=== PATIENT | female | born 1930 | race Caucasian/White ===

== ENCOUNTER 2019-11-24 19:49 | Emergency (ER) | payer MEDICARE ==
[~2019-11-24] VITALS: Ht 160 cm; Wt 53.1 kg
[~2019-11-24 19:49] MED LIST: ACET325T9 PO; ASPI325T8 PO; CALC-30 PO; CHOL2000 PO; CRESTOR20 MG PO; CYAN500T40 PO; FOLI0.4T2 PO; FURO20TA3 PO; LEFL10TA13 PO; METH2.5T PO; METO25TA4 PO; MULT-245 PO
[2019-11-24 20:28] LABS: BASO % 0 % (0-3); EOS # 0.3 x10^3/uL (0.0-0.7); EOS % 3 % (0-3); HEMATOCRIT 30.1 % (36.0-47.0); HEMOGLOBIN 10.2 g/dL (12.0-15.5); LYMPH # 0.8 x10^3/uL (1.0-4.8); LYMPH % 7 % (24-48); MEAN CORPUSCULAR HEMOGLOBIN 33 pg (25-35); MEAN CORPUSCULAR HGB CONC 34 g/dL (31-37); MEAN CORPUSCULAR VOLUME 98 fL (79-100); MONO # 1.5 x10^3/uL (0.0-1.1); MONO % 14 % (0-9); NEUT # 8.5 x10^3/uL (1.8-7.7); NEUT % 77 % (31-73); PLATELET COUNT 234 x10^3/uL (140-400); RED BLOOD COUNT 3.08 x10^6/uL (3.50-5.40); RED CELL DISTRIBUTION WIDTH 18.9 % (11.5-14.5); WHITE BLOOD COUNT 11.1 x10^3/uL (4.0-11.0)
[2019-11-24] MEDS ORDERED: IV NORMAL SALINE 1000ML BAG 1,000 ML IV ONE (20:30)
--- NOTE | 2019-11-24 20:30 | PHYS DOC ---
Past Medical History Past Medical History: Arthritis, High Cholesterol, Hypertension, Other Additional Past Medical Histor: SCOLIOSIS, PACEMAKER Past Surgical History: Tonsillectomy, Other Additional Past Surgical Histo: CARDIAC STENT, PACEMAKER, Smoking Status: Never Smoker Alcohol Use: None Drug Use: None General Adult EDM: Chief Complaint: DIARRHEA HPI: HPI: Patient is a 89 year [id number] female is a patient of Dr. Carlin presents with a chief complaint of copious diarrhea and urinary frequency. Patient states that she was recently started on a new medication furosemide. Last dose taken was Sunday. Patient states symptoms started shortly after that. Patient states she has had numerous amounts of foul-smelling diarrhea throughout the day. Patient also states she has had very frequent urination. Patient denies any fever chest pain abdominal pain or shortness of breath. Review of Systems: Review of Systems: Constitutional: Denies fever or chills. [] Eyes: Denies change in visual acuity. [] HENT: Denies nasal congestion or sore throat. [] Respiratory: Denies cough or shortness of breath. [] Cardiovascular: Denies chest pain or edema. [] GI: Denies abdominal pain, nausea, vomiting, bloody stools positive diarrhea : Denies dysuria. [] Positive urinary frequency Musculoskeletal: Denies back pain or joint pain. [] Integument: Denies rash. [] Neurologic: Denies headache, focal weakness or sensory changes. [] Endocrine: Denies polyuria or polydipsia. [] Lymphatic: Denies swollen glands. [] Psychiatric: Denies depression or anxiety. [] Heart Score: Risk Factors: Risk Factors: DM, Current or recent (<one month) smoker, HTN, HLP, family history of CAD, obesity. Risk Scores: Score 0 - 3: 2.5% MACE over next 6 weeks - Discharge Home Score 4 - 6: 20.3% MACE over next 6 weeks - Admit for Clinical Observation Score 7 - 10: 72.7% MACE over next 6 weeks - Early Invasive Strategies Current Medications: Current Medications Medications (Trade) Dose Ordered Sig/Love Start Time Stop Time Status Last Admin Dose Admin Sodium Chloride 1,000 ml @ 1,000 mls/hr 1X ONCE 11/24/19 20:30 11/24/19 21:29 Allergies: Allergies: Allergies Coded Allergies Type Severity Reaction Last Updated Verified Sulfa (Sulfonamide Antibiotics) Allergy Mild UNKNOWN 02/04/16 Yes Physical Exam: PE: Constitutional: Well developed, well nourished, no acute distress, non-toxic appearance. [] HENT: Normocephalic, atraumatic, bilateral external ears normal, oropharynx moist, no oral exudates, nose normal. [] Eyes: PERRLA, EOMI, conjunctiva normal, no discharge. [] Neck: Normal range of motion, no tenderness, supple, no stridor. [] Cardiovascular:Heart rate regular rhythm, no murmur [] Lungs & Thorax: Bilateral breath sounds clear to auscultation [] Abdomen: Bowel sounds normal, soft, no tenderness, no masses, no pulsatile masses. [] Skin: Warm, dry, no erythema, no rash. [] Back: No tenderness, no CVA tenderness. [] Extremities: No tenderness, no cyanosis, no clubbing, ROM intact, no edema. [] Neurologic: Alert and oriented X 3, normal motor function, normal sensory function, no focal deficits noted. [] Psychologic: Affect normal, judgement normal, mood normal. [] EKG: EKG: [] Radiology/Procedures: Radiology/Procedures: [] Course & Med Decision Making: Course & Med Decision Making Pertinent Labs and Imaging studies reviewed. (See chart for details) [] Patient was evaluated for chief complaint. Work-up consisted LAB. Results reviewed and discussed with patient and son. Cr noted to be greater than 2.0-- compared to previous and appears to be close to baseline. Patient also received IV fluids. After reevaluation patient states she feels much better. Discussed hospitalization versus discharge home. Patient states she feels comfortable going home. Treatment included Cipro. I elected to use Cipro because of urinary tract infection and and treatment for any causes of infectious diarrhea. Patient advised to follow-up with primary care physician advised to return to the ER if symptoms persist get worse or any new concerning symptoms arise. Henri Disclaimer: Henri Disclaimer: This electronic medical record was generated, in whole or in part, using a voice recognition dictation system. Departure Departure Impression: Primary Impression: UTI (urinary tract infection) Additional Impression: Acute diarrhea Disposition: 01 HOME, SELF-CARE Condition: STABLE Referrals: DOUG BENTON Jr, MD (PCP) Patient Instructions: Diarrhea, Urinary Tract Infection Scripts Ciprofloxacin Hcl (CIPRO) 500 Mg Tablet 1 TAB PO BID for 7 Days, #14 TAB 0 Refills Prov: NIVIA DELCID I DO 11/24/19 Justicifation of Admission Dx: Justifications for Admission: Justification of Admission Dx: N/A NIVIA DELCID I DO Nov 24, 2019 20:30
[2019-11-24 20:34] LABS: CALCIUM 9.1 mg/dL (8.5-10.1); CREATININE 2.1 mg/dL (0.6-1.0); GFR 22.3; POTASSIUM 3.5 mmol/L (3.5-5.1)
[2019-11-24 20:40] LABS: ALBUMIN/GLOBULIN RATIO 0.7 (1.0-1.7); TOTAL BILIRUBIN 0.5 mg/dL (0.2-1.0); TOTAL PROTEIN 7.2 g/dL (6.4-8.2)
[2019-11-24 23:25] LABS: BILIRUBIN,URINE SMALL (NEG); CLARITY,URINE CLOUDY; COLOR,URINE YELLOW; NITRITE,URINE NEGATIVE (NEG); PH,URINE 5.5 (<5.0-8.0); PROTEIN,URINE 30 mg/dL (NEG-TRACE); UROBILINOGEN,URINE 0.2 mg/dL (0.2 mg/dL)
[2019-11-24 23:30] LABS: BACTERIA,URINE MANY /HPF (0-FEW); HYALINE CASTS, URINE MODERATE /HPF; SQUAMOUS EPITHELIAL CELL,UR MOD /LPF; WBC,URINE 20-40 /HPF (0-4)
[2019-11-24 23:45] VITALS: BP 118/70
[2019-11-24] MEDS ORDERED: CIPROFLOXACIN 400MG PREMIX 200 ML IV ONE (23:45)
[2019-11-24] MEDS ORDERED: CIPR500T94 PO (23:52)
[2019-11-25] MEDS ORDERED: CIPROFLOXACIN HCL 250 MG TABLET. PO ONE (00:30)
== END 2019-11-25 00:40 | disposition home or self-care (01) ==
LOC: ER 19:49
DX: N39.0 Urinary tract infection, site not specified (principal); R19.7 Diarrhea, unspecified; R35.0 Frequency of micturition; M19.90 Unspecified osteoarthritis, unspecified site; E78.00 Pure hypercholesterolemia, unspecified; I10 Essential (primary) hypertension; Z95.0 Presence of cardiac pacemaker; Z90.89 Acquired absence of other organs; Z98.890 Other specified postprocedural states; Z88.2 Allergy status to sulfonamides
CPT/HCPCS: 36415; 80053; 81001; 85025; 87086; 96360; 99285; J7030

== ENCOUNTER 2019-11-25 10:21 | Inpatient (IN) | payer MEDICARE ==
[~2019-11-25] VITALS: Ht 157.5 cm; Wt 56.3 kg
[~2019-11-25 10:21] MED LIST changes: +CIPR500T94 PO
--- NOTE | 2019-11-25 11:12 | PHYS DOC ---
Past Medical History Past Medical History: Arthritis, High Cholesterol, Hypertension, Other Additional Past Medical Histor: SCOLIOSIS Past Surgical History: Angioplasty, Pacemaker, Tonsillectomy, Other Additional Past Surgical Histo: CARDIAC STENT Smoking Status: Never Smoker Alcohol Use: None Drug Use: None General Adult EDM: Chief Complaint: DIARRHEA HPI: HPI: Patient is a 89 year old female, accompanied by her son, who presents to the emergency department with complaints of continued copious diarrhea and excessive urination. Patient states her symptoms started after she had taken a dose of furosemide 7 days prior to arrival. Patient states she was prescribed the furosemide for lower extremity swelling, and she has not taken it since 11/19/19. She was seen evaluated here last night for the same sx. She declined admission at that time and was discharged home with a prescription for ciprofloxacin for a UTI. She reports that this morning she has been unable to stop having diarrhea and she urinates at the same time. She continues to complain of foul-smelling diarrhea. She denies any nausea, vomiting, abdominal pain, chest pain, shortness of breath, fever, or back pain. She currently denies any pain at this time. Review of Systems: Review of Systems: Constitutional: Denies fever or chills. [] HENT: Denies nasal congestion or sore throat. [] Respiratory: Denies cough or shortness of breath. [] Cardiovascular: Denies chest pain or edema. [] GI: Denies abdominal pain, nausea, vomiting, or bloody stools; see HPI : Denies dysuria; see HPI. [] Musculoskeletal: Denies back pain or joint pain. [] Integument: Denies rash. [] Neurologic: Denies headache, focal weakness or sensory changes. [] Psychiatric: Denies depression or anxiety. [] Heart Score: Risk Factors: Risk Factors: DM, Current or recent (<one month) smoker, HTN, HLP, family history of CAD, obesity. Risk Scores: Score 0 - 3: 2.5% MACE over next 6 weeks - Discharge Home Score 4 - 6: 20.3% MACE over next 6 weeks - Admit for Clinical Observation Score 7 - 10: 72.7% MACE over next 6 weeks - Early Invasive Strategies Allergies: Allergies: Allergies Coded Allergies Type Severity Reaction Last Updated Verified Sulfa (Sulfonamide Antibiotics) Allergy Mild UNKNOWN 9/23/16 Yes Physical Exam: PE: Constitutional: Well developed, well nourished, no acute distress, non-toxic appearance. [] HENT: Normocephalic, atraumatic, bilateral external ears normal, oropharynx dry, nose normal. [] Eyes: PERRLA, EOMI, conjunctiva normal, no discharge. [] Neck: Normal range of motion, no stridor. [] Cardiovascular:Heart rate regular rhythm, no murmur [] Lungs & Thorax: Bilateral breath sounds clear to auscultation, Respirations even and unlabored, no retractions, no respiratory distress [] Abdomen: Bowel sounds normal, soft, no tenderness, no masses, no pulsatile masses. [] Skin: Warm, dry, no erythema, no rash, skin turgor greater than 3 seconds [] Extremities: No cyanosis, ROM intact, no edema. [] Neurologic: Alert and oriented X 3, no focal deficits noted. [] Psychologic: Affect normal, judgement normal, mood normal. [] EKG: EK- sinus tachycardia, rate 110, no STEMI, read by Dr. Lee Radiology/Procedures: Radiology/Procedures: [] Course & Med Decision Making: Course & Med Decision Making Pertinent Labs and Imaging studies reviewed. (See chart for details) [id number] with Dr. Jean who is the admitting physician, and care was assumed following discussion of patient. I advised him of pending labs ordered today, and lab results from yesterday's visit. Patient's vital signs stable. Patient remains afebrile, appears nontoxic, respirations even and unlabored. Patient will be admitted to the med/surg floor. [] Dragon Disclaimer: Dragon Disclaimer: This electronic medical record was generated, in whole or in part, using a voice recognition dictation system. Departure Departure Impression: Primary Impression: UTI (urinary tract infection) Qualified Codes: N39.0 - Urinary tract infection, site not specified; R31.9 - Hematuria, unspecified Additional Impressions: Diarrhea Qualified Codes: R19.7 - Diarrhea, unspecified Dehydration Disposition: ADMITTED INPATIENT Admitting Physician: RONALD (Miranda) Condition: STABLE Referrals: MARILEE HERNANDEZ MD (PCP) Justicifation of Admission Dx: Justifications for Admission: Justification of Admission Dx: Yes Sepsis: Infection MALIK JACOBS APRN Nov 25, 2019 11:12
[2019-11-25 11:20] LABS: BASO % 0 % (0-3); EOS # 0.1 x10^3/uL (0.0-0.7); EOS % 1 % (0-3); HEMATOCRIT 29.5 % (36.0-47.0); HEMOGLOBIN 9.8 g/dL (12.0-15.5); LYMPH # 0.8 x10^3/uL (1.0-4.8); LYMPH % 9 % (24-48); MEAN CORPUSCULAR HEMOGLOBIN 33 pg (25-35); MEAN CORPUSCULAR HGB CONC 33 g/dL (31-37); MEAN CORPUSCULAR VOLUME 99 fL (79-100); MONO # 1.1 x10^3/uL (0.0-1.1); MONO % 13 % (0-9); NEUT # 6.6 x10^3/uL (1.8-7.7); NEUT % 77 % (31-73); PLATELET COUNT 202 x10^3/uL (140-400); RED BLOOD COUNT 2.98 x10^6/uL (3.50-5.40); RED CELL DISTRIBUTION WIDTH 19.3 % (11.5-14.5); WHITE BLOOD COUNT 8.6 x10^3/uL (4.0-11.0)
[2019-11-25] MEDS: IV NORMAL SALINE 1000ML BAG 1,000 ML IV SCH ×2 (11:22→22:15)
[2019-11-25 11:31] LABS: CALCIUM 9.1 mg/dL (8.5-10.1); CREATININE 2.1 mg/dL (0.6-1.0); GFR 22.3; POTASSIUM 3.1 mmol/L (3.5-5.1)
[2019-11-25 11:42] LABS: ALBUMIN 2.9 g/dL (3.4-5.0); ALBUMIN/GLOBULIN RATIO 0.7 (1.0-1.7); MAGNESIUM 1.7 mg/dL (1.8-2.4); TOTAL BILIRUBIN 0.7 mg/dL (0.2-1.0); TOTAL PROTEIN 7.1 g/dL (6.4-8.2)
[2019-11-25 13:00] LABS: BILIRUBIN,URINE SMALL (NEG); CLARITY,URINE CLOUDY; COLOR,URINE YELLOW; NITRITE,URINE NEGATIVE (NEG); PROTEIN,URINE 100 mg/dL (NEG-TRACE); UROBILINOGEN,URINE 0.2 mg/dL (0.2 mg/dL)
[2019-11-25 13:07] LABS: BACTERIA,URINE 0 /HPF (0-FEW); HYALINE CASTS, URINE MANY /HPF; SQUAMOUS EPITHELIAL CELL,UR MOD /LPF
[2019-11-25 13:08] LABS: RBC,URINE 0 /HPF (0-2); WBC,URINE 20-40 /HPF (0-4)
[2019-11-25 13:10] LABS: AMORPHOUS SEDIMENT,UR PRESENT /HPF
[2019-11-25 14:01] LABS: FECAL OB PT NEGATIVE (NEG)
[2019-11-25 15:00] VITALS: BP 100/50
--- NOTE | 2019-11-25 16:09 | NUR ---
Patient would benefit from futher PT/OT evaluation when medically appropriate to participate in skilled therapy services. Please order when able. Thank you. Addendum: 11/25/19 at 1610 by BENJAMIN TAVARES, PT PT Amended: Links added.
[2019-11-25 19:00] VITALS: BP 98/50
[2019-11-25] MEDS ORDERED: MAGNESIUM SULFATE 2GM 50 ML IV ONE (19:30)
[2019-11-25] MEDS ORDERED: POTASSIUM CHLORIDE 20 MEQ TABLET.ER. PO ONE (19:30)
[2019-11-25] MEDS ORDERED: ACETAMINOPHEN 325 MG TABLET. PO PRN (19:30)
--- NOTE | 2019-11-25 19:53 | PDOC1 ---
History and Physical Date of Admission Date of Admission DATE: 11/25/19 TIME: 19:20 Identification/Chief Complaint Chief Complaint diarrhea Problems: (1) Dizziness (2) Diarrhea (3) UTI (urinary tract infection) Source Source: Chart review, Patient History of Present Illness History of Present Illness Patient is a 89 hx of HTN, HLD, who presents with watery diarrhea for 5 days non-bloody. no fevers. states her symptoms started after she took lasix. has not taken since 11/18. she came to ED last night and was prescribed cipro for a UTI. sent home but continued to have diarrhea so came to ED. decreased PO intake for several days. no vomiting abdominal pain sob or back pain. denies any urinary symptoms. noted creatine of 2.1. Hb 9.8. Mg 1.7. K 3.1. occult blood negative. UA + in ED given persistent diarrhea, hospitalist called for admission. Past Medical History Cardiovascular: HTN, Hyperlipidemia, Aortic stenosis, Other Pulmonary: No pertinent hx Heme/Onc: Anemia NOS Musculoskeletal: Osteoarthritis Rheumatologic: Rheumatoid arthritis Renal/: Chronic renal insuff Endocrine: No pertinent hx Past Surgical History Past Surgical History: Pacemaker Social History Smoke: No ALCOHOL: none Drugs: None Current Problem List Problem List Problems Medical Problems: (1) Dehydration Status: Acute (2) Diarrhea Status: Acute (3) UTI (urinary tract infection) Status: Acute Current Medications Current Medications Current Medications Sodium Chloride 1,000 ml @ 75 mls/hr [id number] IV Last administered on 11/25/19at 11:22; Start 11/25/19 at 11:22; Stop 11/26/19 at 11:21 Magnesium Sulfate 50 ml @ 25 mls/hr 1X ONCE IV ; Start 11/25/19 at 19:30; Stop 11/25/19 at 21:29 Potassium Chloride (Klor-Con) 60 meq 1X ONCE PO ; Start 11/25/19 at 19:30; Stop 11/25/19 at 19:31 Ceftriaxone Sodium (Rocephin) 1 gm Q24H IVP ; Start 11/25/19 at 20:00 Active Scripts Active Cipro (Ciprofloxacin Hcl) 500 Mg Tablet 1 Tab PO BID 7 Days Reported Tylenol (Acetaminophen) 325 Mg Tablet 650 Mg PO PRN Q6HRS PRN Calcium 500 + Vit D 400 Tablet (Calcium Carbonate/Vitamin D3) 1 Each Tablet 1 Each PO Multi Vitamin Daily (Multivitamin) 1 Each Tablet 1 Each PO Vitamin D (Cholecalciferol (Vitamin D3)) 2,000 Unit Capsule 1 Cap PO DAILY Vitamin B-12 (Cyanocobalamin (Vitamin B-12)) 500 Mcg Tab.subl 1,000 Mcg PO QODAY Folic Acid 0.4 Mg Tablet 0.4 Mg PO DAILY Aspirin 325 Mg Tablet 1 Tab PO DAILY Crestor (Rosuvastatin Calcium) 20 Mg Tablet 1 Tab PO QODAY Furosemide 20 Mg Tablet 1 Tab PO PRN DAILY PRN Methotrexate (Methotrexate Sodium) 2.5 Mg Tablet 4 Tab PO WEEKLY Metoprolol Tartrate 25 Mg Tablet 1 Tab PO BID Allergies Allergies: Coded Allergies: Sulfa (Sulfonamide Antibiotics) (Verified Allergy, Mild, UNKNOWN, 02/04/16) ROS Review of System CONSTITUTIONAL: No fever or chills EYES: No recent changes SKIN: No rash or itching CARDIOVASCULAR: No chest pain, syncope, palpitations, or edema RESPIRATORY: No SOB or cough GASTROINTESTINAL: No nausea, vomiting or abdominal pain NEUROLOGICAL: No headaches or weakness ENDOCRINE: No cold or heat intolerance GENITOURINARY: No urgency or frequency of urination MUSCULOSKELETAL: No back pain or joint pain LYMPHATICS: No enlarged lymph nodes PSYCHIATRIC: No anxiety or depression Physical Exam Physical Exam GENERAL: No apparent distress. Alert and oriented. HEENT: Head normocephalic, atraumatic. NECK: Supple LUNGS: Clear to auscultation. HEART: RRR, S1, S2 present, pulses intact ABDOMEN: Soft, positive bowel sounds. EXTREMITIES: No cyanosis or edema. NEUROLOGIC: Normal speech, normal tone PSYCHIATRIC: Normal affect, normal mood. SKIN: No ulceration. Vitals Vitals Vital Signs Date Time Temp Pulse Resp B/P (MAP) Pulse Ox O2 Delivery O2 Flow Rate FiO2 11/25/19 17:43 Room Air 11/25/19 15:00 97.5 115 16 100/50 (67) 94 97.5 Labs Labs Laboratory Tests Test 11/25/19 11:00 11/25/19 12:50 11/25/19 13:45 White Blood Count 8.6 x10^3/uL (4.0-11.0) Red Blood Count 2.98 x10^6/uL (3.50-5.40) Hemoglobin 9.8 g/dL (12.0-15.5) Hematocrit 29.5 % (36.0-47.0) Mean Corpuscular Volume 99 fL (79-100) Mean Corpuscular Hemoglobin 33 pg (25-35) Mean Corpuscular Hemoglobin Concent 33 g/dL (31-37) Red Cell Distribution Width 19.3 % (11.5-14.5) Platelet Count 202 x10^3/uL (140-400) Neutrophils (%) (Auto) 77 % (31-73) Lymphocytes (%) (Auto) 9 % (24-48) Monocytes (%) (Auto) 13 % (0-9) Eosinophils (%) (Auto) 1 % (0-3) Basophils (%) (Auto) 0 % (0-3) Neutrophils # (Auto) 6.6 x10^3/uL (1.8-7.7) Lymphocytes # (Auto) 0.8 x10^3/uL (1.0-4.8) Monocytes # (Auto) 1.1 x10^3/uL (0.0-1.1) Eosinophils # (Auto) 0.1 x10^3/uL (0.0-0.7) Basophils # (Auto) 0.0 x10^3/uL (0.0-0.2) Sodium Level 142 mmol/L (136-145) Potassium Level 3.1 mmol/L (3.5-5.1) Chloride Level 102 mmol/L (98-107) Carbon Dioxide Level 24 mmol/L (21-32) Anion Gap 16 (6-14) Blood Urea Nitrogen 27 mg/dL (7-20) Creatinine 2.1 mg/dL (0.6-1.0) Estimated GFR (Cockcroft-Gault) 22.3 BUN/Creatinine Ratio 13 (6-20) Glucose Level 97 mg/dL (70-99) Calcium Level 9.1 mg/dL (8.5-10.1) Magnesium Level 1.7 mg/dL (1.8-2.4) Total Bilirubin 0.7 mg/dL (0.2-1.0) Aspartate Amino Transf (AST/SGOT) 106 U/L (15-37) Alanine Aminotransferase (ALT/SGPT) 24 U/L (14-59) Alkaline Phosphatase 60 U/L (46-116) Total Protein 7.1 g/dL (6.4-8.2) Albumin 2.9 g/dL (3.4-5.0) Albumin/Globulin Ratio 0.7 (1.0-1.7) Lipase 36 U/L (73-393) Urine Collection Type U cath Urine Color Yellow Urine Clarity Cloudy Urine pH 5.0 (<5.0-8.0) Urine Specific [place] 1.020 (1.000-1.030) Urine Protein 100 mg/dL (NEG-TRACE) Urine Glucose (UA) Negative mg/dL (NEG) Urine Ketones (Stick) Trace mg/dL (NEG) Urine Blood Negative (NEG) Urine Nitrite Negative (NEG) Urine Bilirubin Small (NEG) Urine Urobilinogen Dipstick 0.2 mg/dL (0.2 mg/dL) Urine Leukocyte Esterase Moderate (NEG) Urine RBC 0 /HPF (0-2) Urine WBC 20-40 /HPF (0-4) Urine Squamous Epithelial Cells Mod /LPF Urine Transitional Epithelial Cells Few /LPF Urine Renal Epithelial Cells Few /LPF Urine Amorphous Sediment Present /HPF Urine Bacteria 0 /HPF (0-FEW) Urine Hyaline Casts Many /HPF Urine Mucus Mod /LPF Stool Occult Blood Negative (NEG) Laboratory Tests Test 11/25/19 11:00 11/25/19 12:50 11/25/19 13:45 White Blood Count 8.6 x10^3/uL (4.0-11.0) Red Blood Count 2.98 x10^6/uL (3.50-5.40) Hemoglobin 9.8 g/dL (12.0-15.5) Hematocrit 29.5 % (36.0-47.0) Mean Corpuscular Volume 99 fL (79-100) Mean Corpuscular Hemoglobin 33 pg (25-35) Mean Corpuscular Hemoglobin Concent 33 g/dL (31-37) Red Cell Distribution Width 19.3 % (11.5-14.5) Platelet Count 202 x10^3/uL (140-400) Neutrophils (%) (Auto) 77 % (31-73) Lymphocytes (%) (Auto) 9 % (24-48) Monocytes (%) (Auto) 13 % (0-9) Eosinophils (%) (Auto) 1 % (0-3) Basophils (%) (Auto) 0 % (0-3) Neutrophils # (Auto) 6.6 x10^3/uL (1.8-7.7) Lymphocytes # (Auto) 0.8 x10^3/uL (1.0-4.8) Monocytes # (Auto) 1.1 x10^3/uL (0.0-1.1) Eosinophils # (Auto) 0.1 x10^3/uL (0.0-0.7) Basophils # (Auto) 0.0 x10^3/uL (0.0-0.2) Sodium Level 142 mmol/L (136-145) Potassium Level 3.1 mmol/L (3.5-5.1) Chloride Level 102 mmol/L (98-107) Carbon Dioxide Level 24 mmol/L (21-32) Anion Gap 16 (6-14) Blood Urea Nitrogen 27 mg/dL (7-20) Creatinine 2.1 mg/dL (0.6-1.0) Estimated GFR (Cockcroft-Gault) 22.3 BUN/Creatinine Ratio 13 (6-20) Glucose Level 97 mg/dL (70-99) Calcium Level 9.1 mg/dL (8.5-10.1) Magnesium Level 1.7 mg/dL (1.8-2.4) Total Bilirubin 0.7 mg/dL (0.2-1.0) Aspartate Amino Transf (AST/SGOT) 106 U/L (15-37) Alanine Aminotransferase (ALT/SGPT) 24 U/L (14-59) Alkaline Phosphatase 60 U/L (46-116) Total Protein 7.1 g/dL (6.4-8.2) Albumin 2.9 g/dL (3.4-5.0) Albumin/Globulin Ratio 0.7 (1.0-1.7) Lipase 36 U/L (73-393) Urine Collection Type U cath Urine Color Yellow Urine Clarity Cloudy Urine pH 5.0 (<5.0-8.0) Urine Specific [place] 1.020 (1.000-1.030) Urine Protein 100 mg/dL (NEG-TRACE) Urine Glucose (UA) Negative mg/dL (NEG) Urine Ketones (Stick) Trace mg/dL (NEG) Urine Blood Negative (NEG) Urine Nitrite Negative (NEG) Urine Bilirubin Small (NEG) Urine Urobilinogen Dipstick 0.2 mg/dL (0.2 mg/dL) Urine Leukocyte Esterase Moderate (NEG) Urine RBC 0 /HPF (0-2) Urine WBC 20-40 /HPF (0-4) Urine Squamous Epithelial Cells Mod /LPF Urine Transitional Epithelial Cells Few /LPF Urine Renal Epithelial Cells Few /LPF Urine Amorphous Sediment Present /HPF Urine Bacteria 0 /HPF (0-FEW) Urine Hyaline Casts Many /HPF Urine Mucus Mod /LPF Stool Occult Blood Negative (NEG) VTE Prophylaxis Ordered VTE Prophylaxis Devices: Yes VTE Pharmacological Prophylaxi: Yes Assessment/Plan Assessment/Plan ASSESSMENT Acute Diarrhea 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 Anemia with Hb 9.8 Hypokalemia Hypomagnesemia hx of HTN HLD PLAN admit to medical floor bed check stool studies including c diff CT abdomen and pelvis given diarrhea IVF hold lasix given elevated creatine if c diff negative start rocephin, check urine cultures replace lytes anemia work up dvt ppx full code Justicifation of Admission Dx: Justifications for Admission: Justification of Admission Dx: Yes Sepsis: Infection Problem Qualifiers (1) Diarrhea: Diarrhea type: unspecified type Qualified Codes: R19.7 - Diarrhea, unspecified (2) UTI (urinary tract infection): Urinary tract infection type: site unspecified Hematuria presence: with hematuria Qualified Codes: N39.0 - Urinary tract infection, site not specified; R31.9 - Hematuria, unspecified FRANK CORTES MD Nov 25, 2019 19:53
[2019-11-25] MEDS: ATORVASTATIN CALCIUM 40 MG TABLET. PO SCH (20:51)
[2019-11-25] MEDS: METOPROLOL TART IMMED RELEASE 25 MG TABLET. PO SCH (20:52)
[2019-11-25] MEDS: HEPARIN for SUB-Q USE 5,000 UNIT/ML VIAL. SQ SCH (20:58)
[2019-11-25] MEDS: cefTRIAXone IV Push 1 GM VIAL. IVP SCH (22:13)
[2019-11-25 23:00] VITALS: BP 89/49
[2019-11-26] VITALS (7 sets, daily range): BP systolic 82–105; BP diastolic 40–61
--- NOTE | 2019-11-26 05:07 | EKG ---
[facility] [address] [place] [address] Test Date: 2019-11-25 Test Time: 11:27:37 Pat Name: RUTH SHAH Department: Room: Gender: F Neon Sign Erector: : [id number] Requested By: MALIK JACOBS Order Number: [id number] Reading MD: Measurements Intervals [place] Rate: 110 P: 149 [place]: 112 QRS: -46 QRSD: 178 T: 105 QT: 372 QTc: 510 Interpretive Statements SINUS TACHYCARDIA ABNORMAL LEFT AXIS DEVIATION NON SPECIFIC INTRAVENTRICULAR BLOCK QRS(T) CONTOUR ABNORMALITY CONSIDER ANTEROSEPTAL MYOCARDIAL DAMAGE ABNORMAL ECG RI6.01 No previous ECG available for comparison
[2019-11-26] MEDS: HEPARIN for SUB-Q USE 5,000 UNIT/ML VIAL. SQ SCH ×3 (05:37→22:08)
--- NOTE | 2019-11-26 08:42 | PDOC ---
PROGRESS NOTES History of Present Illness History of Present Illness VTE Prophylaxis Ordered VTE Prophylaxis Devices: Yes VTE Pharmacological Prophylaxi: Yes impression ======== Assessment/Plan ASSESSMENT Right lower lobe superior segment infiltrate. Follow-up 2 view chest x-ray exam recommended There are patchy bilateral infiltrates greatest of the right upper lobe. on ct chest 11/25There are also some patchy areas of groundglass density bilaterally as can be seen with edema, sequela of atypical infectious etiology such as COVID not excluded. 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 HTN HLD Severe calcific involvement of the aorta and its branches. Significant calcific involvement of the iliac arteries and especially the right commonfemoral artery. Correlate for possibility of peripheral vascular disease especially of the right lower extremity. PLAN admit to medical floor bed 6th floor tele check stool studies including c diff CT abdomen and pelvis given diarrhea CT CHEST IVF hold lasix given elevated creatine if c diff negative start rocephin, check urine cultures replace lytes anemia work up cardiology consult ECHO dvt ppx full code covid-19 screen pulm consult FOLLOW RENAL FX, if worse, consult nephrology 39 MIN pt exam, chart review, > 50% of time spent with exam, chart review, pt care coordination Justicifation of Admission Dx: Justicifation of Admission Dx: Justifications for Admission: Justification of Admission Dx: Yes Sepsis: Infection Vitals Vitals Vital Signs Date Time Temp Pulse Resp B/P (MAP) Pulse Ox O2 Delivery O2 Flow Rate FiO2 11/26/19 03:00 97.6 79 16 82/43 (56) 94 Room Air 97.6 Physical Exam Physical Exam Physical Exam Physical Exam GENERAL: No apparent distress. Alert and oriented. HEENT: Head normocephalic, atraumatic. NECK: Supple LUNGS: Clear to auscultation. HEART: RRR, S1, S2 present, 4/6 jacqueline ABDOMEN: Soft, positive bowel sounds. EXTREMITIES: No cyanosis or edema. NEUROLOGIC: Normal speech, normal tone PSYCHIATRIC: Normal affect, normal mood. SKIN: No ulceration. General: Cooperative Extremities: No cyanosis Labs LABS CT CHEST WO CONTRAST Indication: Pneumonia Technique: Noncontrast CT imaging was performed of the chest, multiplanar reconstruction images submitted. One or more of the following individualized dose reduction techniques were utilized for this examination: 1. Automated exposure control 2. Adjustment of the mA and/or kV according to patient size 3. Use of iterative reconstruction technique. Comparison: None Findings: There are small dependent pleural effusions bilaterally, right greater than left. There is extensive coronary calcification. There is mitral annular calcification. There is dual-lead left electronic cardiac device. Thoracic aortic caliber is within normal limits, scattered plaque. There is likely significant stenosis of the proximal left subclavian artery by calcified plaque. There is emphysema. There is variable septal thickening bilaterally, also mild honeycombing. There are patchy areas of infiltrate greatest of the right upper lobe but also seen of the lower lobes bilaterally, minimally of the left upper lobe and right middle lobe. There are also some scattered areas of nonspecific groundglass density bilaterally. There is moderate to severe mid thoracic dextroscoliosis. There is multilevel variable thoracic degenerative disc disease. There is air-fluid level in the esophagus which is somewhat dilated, also probable degree of esophageal wall thickening greatest of the mid to distal esophagus. No significantly enlarged nodes are identified of the chest. There is body wall edema. There is prominent atherosclerotic calcification of the visualized abdominal aorta and branches. IMPRESSION: 1. There are patchy bilateral infiltrates greatest of the right upper lobe. There are also some patchy areas of groundglass density bilaterally as can be seen with edema, sequela of atypical infectious etiology such as COVID not excluded. There is degree of interstitial fibrotic change and septal thickening. There are small pleural effusions bilaterally greater on the right. 2. There is prominent coronary calcification. 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 3. There is air-fluid level in the somewhat dilated esophagus, could predispose to increased risk of aspiration. Critical results were discussed with patient's nurse Anahy at 11/26/2019 1:44 PM. Electronically signed by: Dean Barreto MD (11/26/2019 1:45 PM) [id number] Procedure Result URINE CULTURE Final Final No Growth on 11/26/19 at 0939 Testing Performed by: [address] [id number] For Inquires, the Physician may contact the Microbiology department at [phone] Unless otherwise specified, Testing Performed by: [address] [address] For Inquires, the Physician may contact the Microbiology department at [phone] APPROVED REPORT EXAM: Two-dimensional and M-mode echocardiogram with Doppler and color Doppler. Other Information HR: 70bpm Rhythm : Pacemaker INDICATION Aortic Valve Disease Surgery/Intervention Pacemaker: RISK FACTORS Hyperlipidemia 2D DIMENSIONS RVDd 3.4 (2.9-3.5cm) Left Atrium(2D) 3.5 (1.6-4.0cm) IVSd 1.1 (0.7-1.1cm) Aortic Root(2D) 2.9 (2.0-3.7cm) LVDd 3.9 (3.9-5.9cm) LVOT Diameter 1.8 (1.8-2.4cm) PWd 1.2 (0.7-1.1cm) LVDs 2.7 (2.5-4.0cm) FS (%) 32.2 % SV 40.9 ml LVEF(%) 61.0 (>50%) Aortic Valve AoV Peak Vic. 312.6cm/s AoV VTI 78.0cm AO Peak GR. 39.1mmHg LVOT Peak Vic. 120.3cm/s AO Mean GR. 25mmHg ABISAI (VMAX) 0.96cm2 Mitral Valve MV E Velocity 114.0cm/s MV E Peak Gr. 7mmHg MV DECEL TIME 160ms MV A Velocity 128.9cm/s MV E Mean Gr. 4mmHg E/A Ratio 0.9 MV A Duration 149ms Pulmonary Valve PV Peak Velocity 83.3cm/s Tricuspid Valve TR P. Velocity 309cm/s RAP ESTIMATE 3mmHg TR Peak Gr. 38mmHg Pulmonary Vein S1 Velocity 63.5cm/s D2 Velocity 42.9cm/s LEFT VENTRICLE The left ventricle is normal size. There is mild concentric left ventricular hypertrophy. Left ventricle systolic function is normal. The Ejection Fraction is 55-60%. Tissue Doppler imaging reveals mild left ventricular diastolic dysfunction. RIGHT VENTRICLE The right ventricle is normal size. There is normal right ventricular wall thickness. The right ventricular systolic function is normal. ATRIA The left atrium size is normal. The right atrium size is normal. The interatrial septum is intact with no evidence for an atrial septal defect or patent foramen ovale as noted on 2-D or Doppler imaging. AORTIC VALVE The aortic valve is calcified and displays decreased opening. Doppler and Color Flow revealed trace aortic regurgitation. There is moderate to moderate-severe valvular aortic stenosis. Calculated aortic valve maximum pressure gradient of 39 mmHg and mean pressure gradient of 25 mmHg. Calculated ABISAI 1.0 cm2 MITRAL VALVE Mitral annular calcification is moderate. Doppler and Color-flow revealed mild to moderate mitral regurgitation. TRICUSPID VALVE The tricuspid valve is normal in structure. Doppler and Color Flow revealed moderate to severe tricuspid regurgitation. There is no tricuspid valve stenosis. PULMONIC VALVE Not well visualized. Doppler and Color Flow revealed mild pulmonic valvular regurgitation. There is no pulmonic valvular stenosis. GREAT VESSELS The aortic root is normal in size. The ascending aorta is normal in size. The IVC is normal in size and collapses >50% with inspiration. PERICARDIAL EFFUSION There is no evidence of significant pericardial effusion. Critical Notification Critical Value: No <Conclusion> Normal LV systolic function. EF 65% Moderate to severe , Moderate to severe TR and Moderate MR. DICTATED and SIGNED BY: AGNES IRAHETA MD DATE: 07/28/15 2255 CC: AGNES IRAHETA MD; JESSA POWERS APRN; DOUG BENTON Jr, MD ~ History: Reason: pain and diarrhea, A.M. PER RN / Spl. Instructions: / History: Comparison/Correlation: None Findings: Axial images of the abdomen and pelvis were obtained without contrast. Sagittal and coronal reformatted images were provided. Small bilateral pleural effusions are present greater on the right. Pacemaker leads are present within the right atrial appendage and right ventricle. Marked calcific involvement of the left mitral annulus is present. Marked coronary arterial calcification is noted. Diffuse interstitial thickening of the lung iglesias is present. Patchy infiltrate is present involving the superior aspect of the right lower lobe but it is not fully included for purposes of this exam. It is best seen on images 1 through 3 of series 2 and coronal images 31 through 36 of series 4. Mosaic attenuation in the lower lung iglesias is evident. This may represent small airways disease. Interstitial thickening which may represent of nonspecific mild fibrosis noted. Calcified granulomas involving the liver. Calcified granulomas involving the spleen. Pancreas and adrenal glands are unremarkable. Marked right renal atrophy is present. Left kidney is unremarkable. There are at least 2 calculi present within the gallbladder measuring up to 0.55 cm diameter. Gallbladder is mildly distended measuring up to nearly 10 cm in greatest dimension. No biliary dilatation. Significant calcific involvement of the aorta and iliac arteries and its abdominal branches is noted. Marked calcific involvement especially on the right common femoral artery is present with severe luminal narrowing or possibly occlusion evident on axial image 72 of series 2 and coronal images 13-14 of series 4. No definite inflammatory changes about the cecum identified. No bowel obstruction. No distention of bowel. Small fluid levels are seen within colon. No colonic wall thickening. No definite inflammatory change about the bowel. Low-attenuation myometrium which may represent fibroid involvement is present. Facet joint degenerative changes are present from L4 to S1. Anterolisthesis of L5 in relation to S1. One stent is present. Slight anterolisthesis of L4-L5 of less than grade 1 extent is present. Impression: Right lower lobe superior segment infiltrate. Follow-up 2 view chest x-ray exam recommended. Follow-up to resolution recommended. Small bilateral pleural effusions. Cholelithiasis. Gallbladder is distended but no inflammatory changes or biliary dilatation. Marked right renal atrophy. No definite findings of acute inflammation involving the bowel. No obstruction. Marked calcific involvement of the coronary arteries. Correlate clinically. Severe calcific involvement of the aorta and its branches. Significant calcific involvement of the iliac arteries and especially the right common femoral artery. Correlate for possibility of peripheral vascular disease especially of the right lower extremity. PQRS Compliance Statement: One or more of the following individualized dose reduction techniques were utilized for this examination: 1. Automated exposure control 2. Adjustment of the mA and/or kV according to patient size 3. Use of iterative reconstruction technique Electronically signed by: Rah Doty MD (11/26/2019 9:55 AM) [id number] DICTATED and SIGNED BY: RAH DOTY MD DATE: 11/26/19 0955 Laboratory Tests Test 11/25/19 11:00 11/25/19 12:50 11/25/19 13:45 White Blood Count 8.6 x10^3/uL (4.0-11.0) Red Blood Count 2.98 x10^6/uL (3.50-5.40) Hemoglobin 9.8 g/dL (12.0-15.5) Hematocrit 29.5 % (36.0-47.0) Mean Corpuscular Volume 99 fL (79-100) Mean Corpuscular Hemoglobin 33 pg (25-35) Mean Corpuscular Hemoglobin Concent 33 g/dL (31-37) Red Cell Distribution Width 19.3 % (11.5-14.5) Platelet Count 202 x10^3/uL (140-400) Neutrophils (%) (Auto) 77 % (31-73) Lymphocytes (%) (Auto) 9 % (24-48) Monocytes (%) (Auto) 13 % (0-9) Eosinophils (%) (Auto) 1 % (0-3) Basophils (%) (Auto) 0 % (0-3) Neutrophils # (Auto) 6.6 x10^3/uL (1.8-7.7) Lymphocytes # (Auto) 0.8 x10^3/uL (1.0-4.8) Monocytes # (Auto) 1.1 x10^3/uL (0.0-1.1) Eosinophils # (Auto) 0.1 x10^3/uL (0.0-0.7) Basophils # (Auto) 0.0 x10^3/uL (0.0-0.2) Sodium Level 142 mmol/L (136-145) Potassium Level 3.1 mmol/L (3.5-5.1) Chloride Level 102 mmol/L (98-107) Carbon Dioxide Level 24 mmol/L (21-32) Anion Gap 16 (6-14) Blood Urea Nitrogen 27 mg/dL (7-20) Creatinine 2.1 mg/dL (0.6-1.0) Estimated GFR (Cockcroft-Gault) 22.3 BUN/Creatinine Ratio 13 (6-20) Glucose Level 97 mg/dL (70-99) Calcium Level 9.1 mg/dL (8.5-10.1) Magnesium Level 1.7 mg/dL (1.8-2.4) Iron Level 39 ug/dL (50-170) Total Iron Binding Capacity 222 ug/dL (250-450) Iron Saturation 18 % (15-34) Total Bilirubin 0.7 mg/dL (0.2-1.0) Aspartate Amino Transf (AST/SGOT) 106 U/L (15-37) Alanine Aminotransferase (ALT/SGPT) 24 U/L (14-59) Alkaline Phosphatase 60 U/L (46-116) Total Protein 7.1 g/dL (6.4-8.2) Albumin 2.9 g/dL (3.4-5.0) Albumin/Globulin Ratio 0.7 (1.0-1.7) Lipase 36 U/L (73-393) Urine Collection Type U cath Urine Color Yellow Urine Clarity Cloudy Urine pH 5.0 (<5.0-8.0) Urine Specific [place]ell 1.020 (1.000-1.030) Urine Protein 100 mg/dL (NEG-TRACE) Urine Glucose (UA) Negative mg/dL (NEG) Urine Ketones (Stick) Trace mg/dL (NEG) Urine Blood Negative (NEG) Urine Nitrite Negative (NEG) Urine Bilirubin Small (NEG) Urine Urobilinogen Dipstick 0.2 mg/dL (0.2 mg/dL) Urine Leukocyte Esterase Moderate (NEG) Urine RBC 0 /HPF (0-2) Urine WBC 20-40 /HPF (0-4) Urine Squamous Epithelial Cells Mod /LPF Urine Transitional Epithelial Cells Few /LPF Urine Renal Epithelial Cells Few /LPF Urine Amorphous Sediment Present /HPF Urine Bacteria 0 /HPF (0-FEW) Urine Hyaline Casts Many /HPF Urine Mucus Mod /LPF Stool Occult Blood Negative (NEG) Assessment and Plan Assessmemt and Plan Problems Medical Problems: (1) Dehydration Status: Acute (2) Diarrhea Status: Acute (3) UTI (urinary tract infection) Status: Acute Comment Review of Relevant I have reviewed the following items christa (where applicable) has been applied. Labs Laboratory Tests Test 11/25/19 11:00 11/25/19 12:50 11/25/19 13:45 White Blood Count 8.6 x10^3/uL (4.0-11.0) Red Blood Count 2.98 x10^6/uL (3.50-5.40) Hemoglobin 9.8 g/dL (12.0-15.5) Hematocrit 29.5 % (36.0-47.0) Mean Corpuscular Volume 99 fL (79-100) Mean Corpuscular Hemoglobin 33 pg (25-35) Mean Corpuscular Hemoglobin Concent 33 g/dL (31-37) Red Cell Distribution Width 19.3 % (11.5-14.5) Platelet Count 202 x10^3/uL (140-400) Neutrophils (%) (Auto) 77 % (31-73) Lymphocytes (%) (Auto) 9 % (24-48) Monocytes (%) (Auto) 13 % (0-9) Eosinophils (%) (Auto) 1 % (0-3) Basophils (%) (Auto) 0 % (0-3) Neutrophils # (Auto) 6.6 x10^3/uL (1.8-7.7) Lymphocytes # (Auto) 0.8 x10^3/uL (1.0-4.8) Monocytes # (Auto) 1.1 x10^3/uL (0.0-1.1) Eosinophils # (Auto) 0.1 x10^3/uL (0.0-0.7) Basophils # (Auto) 0.0 x10^3/uL (0.0-0.2) Sodium Level 142 mmol/L (136-145) Potassium Level 3.1 mmol/L (3.5-5.1) Chloride Level 102 mmol/L (98-107) Carbon Dioxide Level 24 mmol/L (21-32) Anion Gap 16 (6-14) Blood Urea Nitrogen 27 mg/dL (7-20) Creatinine 2.1 mg/dL (0.6-1.0) Estimated GFR (Cockcroft-Gault) 22.3 BUN/Creatinine Ratio 13 (6-20) Glucose Level 97 mg/dL (70-99) Calcium Level 9.1 mg/dL (8.5-10.1) Magnesium Level 1.7 mg/dL (1.8-2.4) Iron Level 39 ug/dL (50-170) Total Iron Binding Capacity 222 ug/dL (250-450) Iron Saturation 18 % (15-34) Total Bilirubin 0.7 mg/dL (0.2-1.0) Aspartate Amino Transf (AST/SGOT) 106 U/L (15-37) Alanine Aminotransferase (ALT/SGPT) 24 U/L (14-59) Alkaline Phosphatase 60 U/L (46-116) Total Protein 7.1 g/dL (6.4-8.2) Albumin 2.9 g/dL (3.4-5.0) Albumin/Globulin Ratio 0.7 (1.0-1.7) Lipase 36 U/L (73-393) Urine Collection Type U cath Urine Color Yellow Urine Clarity Cloudy Urine pH 5.0 (<5.0-8.0) Urine Specific [place]ell 1.020 (1.000-1.030) Urine Protein 100 mg/dL (NEG-TRACE) Urine Glucose (UA) Negative mg/dL (NEG) Urine Ketones (Stick) Trace mg/dL (NEG) Urine Blood Negative (NEG) Urine Nitrite Negative (NEG) Urine Bilirubin Small (NEG) Urine Urobilinogen Dipstick 0.2 mg/dL (0.2 mg/dL) Urine Leukocyte Esterase Moderate (NEG) Urine RBC 0 /HPF (0-2) Urine WBC 20-40 /HPF (0-4) Urine Squamous Epithelial Cells Mod /LPF Urine Transitional Epithelial Cells Few /LPF Urine Renal Epithelial Cells Few /LPF Urine Amorphous Sediment Present /HPF Urine Bacteria 0 /HPF (0-FEW) Urine Hyaline Casts Many /HPF Urine Mucus Mod /LPF Stool Occult Blood Negative (NEG) Laboratory Tests Test 11/25/19 11:00 11/25/19 12:50 11/25/19 13:45 White Blood Count 8.6 x10^3/uL (4.0-11.0) Red Blood Count 2.98 x10^6/uL (3.50-5.40) Hemoglobin 9.8 g/dL (12.0-15.5) Hematocrit 29.5 % (36.0-47.0) Mean Corpuscular Volume 99 fL (79-100) Mean Corpuscular Hemoglobin 33 pg (25-35) Mean Corpuscular Hemoglobin Concent 33 g/dL (31-37) Red Cell Distribution Width 19.3 % (11.5-14.5) Platelet Count 202 x10^3/uL (140-400) Neutrophils (%) (Auto) 77 % (31-73) Lymphocytes (%) (Auto) 9 % (24-48) Monocytes (%) (Auto) 13 % (0-9) Eosinophils (%) (Auto) 1 % (0-3) Basophils (%) (Auto) 0 % (0-3) Neutrophils # (Auto) 6.6 x10^3/uL (1.8-7.7) Lymphocytes # (Auto) 0.8 x10^3/uL (1.0-4.8) Monocytes # (Auto) 1.1 x10^3/uL (0.0-1.1) Eosinophils # (Auto) 0.1 x10^3/uL (0.0-0.7) Basophils # (Auto) 0.0 x10^3/uL (0.0-0.2) Sodium Level 142 mmol/L (136-145) Potassium Level 3.1 mmol/L (3.5-5.1) Chloride Level 102 mmol/L (98-107) Carbon Dioxide Level 24 mmol/L (21-32) Anion Gap 16 (6-14) Blood Urea Nitrogen 27 mg/dL (7-20) Creatinine 2.1 mg/dL (0.6-1.0) Estimated GFR (Cockcroft-Gault) 22.3 BUN/Creatinine Ratio 13 (6-20) Glucose Level 97 mg/dL (70-99) Calcium Level 9.1 mg/dL (8.5-10.1) Magnesium Level 1.7 mg/dL (1.8-2.4) Iron Level 39 ug/dL (50-170) Total Iron Binding Capacity 222 ug/dL (250-450) Iron Saturation 18 % (15-34) Total Bilirubin 0.7 mg/dL (0.2-1.0) Aspartate Amino Transf (AST/SGOT) 106 U/L (15-37) Alanine Aminotransferase (ALT/SGPT) 24 U/L (14-59) Alkaline Phosphatase 60 U/L (46-116) Total Protein 7.1 g/dL (6.4-8.2) Albumin 2.9 g/dL (3.4-5.0) Albumin/Globulin Ratio 0.7 (1.0-1.7) Lipase 36 U/L (73-393) Urine Collection Type U cath Urine Color Yellow Urine Clarity Cloudy Urine pH 5.0 (<5.0-8.0) Urine Specific [place] 1.020 (1.000-1.030) Urine Protein 100 mg/dL (NEG-TRACE) Urine Glucose (UA) Negative mg/dL (NEG) Urine Ketones (Stick) Trace mg/dL (NEG) Urine Blood Negative (NEG) Urine Nitrite Negative (NEG) Urine Bilirubin Small (NEG) Urine Urobilinogen Dipstick 0.2 mg/dL (0.2 mg/dL) Urine Leukocyte Esterase Moderate (NEG) Urine RBC 0 /HPF (0-2) Urine WBC 20-40 /HPF (0-4) Urine Squamous Epithelial Cells Mod /LPF Urine Transitional Epithelial Cells Few /LPF Urine Renal Epithelial Cells Few /LPF Urine Amorphous Sediment Present /HPF Urine Bacteria 0 /HPF (0-FEW) Urine Hyaline Casts Many /HPF Urine Mucus Mod /LPF Stool Occult Blood Negative (NEG) Microbiology 11/25/19 Fecal Leukocyte Stain - Final, Complete Medications Current Medications Sodium Chloride 1,000 ml @ 75 mls/hr [id number] IV Last administered on 11/25/19at 22:15; Start 11/25/19 at 11:22; Stop 11/26/19 at 11:21 Magnesium Sulfate 50 ml @ 25 mls/hr 1X ONCE IV Last administered on 11/25/19at 19:49; Start 11/25/19 at 19:30; Stop 11/25/19 at 21:29; Status DC Potassium Chloride (Klor-Con) 60 meq 1X ONCE PO Last administered on 11/25/19at 19:48; Start 11/25/19 at 19:30; Stop 11/25/19 at 19:31; Status DC Ceftriaxone Sodium (Rocephin) 1 gm Q24H IVP Last administered on 11/25/19at 22 :13; Start 11/25/19 at 20:00 Acetaminophen (Tylenol) 650 mg PRN Q6HRS PRN PO PAIN; Start 11/25/19 at 19:30 Aspirin (Bridgett Aspirin) 325 mg DAILY PO ; Start 11/26/19 at 09:00 Metoprolol Tartrate (Lopressor) 25 mg BID PO Last administered on 11/25/19at 20:52; Start 11/25/19 at 21:00 Vitamin D (Vitamin D3) 2,000 unit DAILY PO ; Start 11/26/19 at 09:00 Cyanocobalamin (Vitamin B-12) 1,000 mcg QODAY PO ; Start 11/26/19 at 09:00 Folic Acid (Folic Acid) 0.5 mg DAILY PO ; Start 11/26/19 at 09:00 Atorvastatin Calcium (Lipitor) 80 mg Q48H PO Last administered on 11/25/19at 20:51; Start 11/25/19 at 21:00 Heparin Sodium (Porcine) (Heparin Sodium) 5,000 unit Q8HRS SQ Last administered on 11/26/19at 05:37; Start 11/25/19 at 22:00 Active Scripts Active Cipro (Ciprofloxacin Hcl) 500 Mg Tablet 1 Tab PO BID 7 Days Reported Tylenol (Acetaminophen) 325 Mg Tablet 650 Mg PO PRN Q6HRS PRN Calcium 500 + Vit D 400 Tablet (Calcium Carbonate/Vitamin D3) 1 Each Tablet 1 Each PO Multi Vitamin Daily (Multivitamin) 1 Each Tablet 1 Each PO Vitamin D (Cholecalciferol (Vitamin D3)) 2,000 Unit Capsule 1 Cap PO DAILY Vitamin B-12 (Cyanocobalamin (Vitamin B-12)) 500 Mcg Tab.subl 1,000 Mcg PO QODAY Folic Acid 0.4 Mg Tablet 0.4 Mg PO DAILY Aspirin 325 Mg Tablet 1 Tab PO DAILY Crestor (Rosuvastatin Calcium) 20 Mg Tablet 1 Tab PO QODAY Furosemide 20 Mg Tablet 1 Tab PO PRN DAILY PRN Methotrexate (Methotrexate Sodium) 2.5 Mg Tablet 4 Tab PO WEEKLY Metoprolol Tartrate 25 Mg Tablet 1 Tab PO BID Vitals/I & O Vital Sign - Last 24 Hours 11/25/19 11/25/19 11/25/19 11/25/19 11:18 12:00 13:00 14:00 Temp 98.7 98.7 Pulse 80 102 102 104 Resp 20 B/P (MAP) 125/89 (101) 109/60 (76) 107/60 (76) 104/58 (73) Pulse Ox 98 96 96 94 O2 Delivery Room Air Room Air Room Air Room Air 11/25/19 11/25/19 11/25/19 11/25/19 15:00 17:43 19:00 20:00 Temp 97.5 97.3 97.5 97.3 Pulse 115 109 Resp 16 18 B/P (MAP) 100/50 (67) 98/50 (66) Pulse Ox 94 94 O2 Delivery Room Air Room Air Room Air Room Air 11/25/19 11/25/19 11/26/19 11/26/19 20:52 23:00 00:15 03:00 Temp 97.7 97.6 97.7 97.6 Pulse 104 90 101 79 Resp 16 16 16 B/P (MAP) 101/59 89/49 (62) 95/45 (62) 82/43 (56) Pulse Ox 93 94 94 O2 Delivery Room Air Room Air Room Air Intake and Output 11/25/19 11/25/19 11/26/19 15:00 23:00 07:00 Intake Total 1170 ml 300 ml Output Total 0 ml 0 ml Balance 1170 ml 300 ml Justicifation of Admission Dx: Justifications for Admission: Justification of Admission Dx: Yes Sepsis: Infection DONNA LASSITER MD Nov 26, 2019 08:42
[2019-11-26] MEDS: FOLIC ACID 1 MG TABLET. PO SCH (09:00)
[2019-11-26] MEDS: ASPIRIN 325 MG TABLET PO SCH (09:00)
[2019-11-26] MEDS: CHOLECALCIFEROL (VITAMIN D3) 1,000 UNIT TABLET PO SCH (09:00)
[2019-11-26] MEDS: METOPROLOL TART IMMED RELEASE 25 MG TABLET. PO SCH ×2 (09:00→22:08)
[2019-11-26] MEDS: CYANOCOBALAMIN (VITAMIN B-12) 1,000 MCG TABLET. PO SCH (09:00)
[2019-11-26 09:33] LABS: BASO % 0 % (0-3); EOS % 0 % (0-3); HEMATOCRIT 27.5 % (36.0-47.0); HEMOGLOBIN 8.9 g/dL (12.0-15.5); LYMPH % 8 % (24-48); MEAN CORPUSCULAR HEMOGLOBIN 33 pg (25-35); MEAN CORPUSCULAR HGB CONC 32 g/dL (31-37); MEAN CORPUSCULAR VOLUME 101 fL (79-100); MONO # 1.5 x10^3/uL (0.0-1.1); MONO % 12 % (0-9); NEUT # 10.1 x10^3/uL (1.8-7.7); NEUT % 80 % (31-73); PLATELET COUNT 212 x10^3/uL (140-400); RED BLOOD COUNT 2.72 x10^6/uL (3.50-5.40); RED CELL DISTRIBUTION WIDTH 19.2 % (11.5-14.5); WHITE BLOOD COUNT 12.6 x10^3/uL (4.0-11.0)
--- NOTE | 2019-11-26 09:58 | RAD ---
Examination: CT ABDOMEN PELVIS WO CONTRAST History: Reason: pain and diarrhea, A.M. PER RN / Spl. Instructions: / History: Comparison/Correlation: None Findings: Axial images of the abdomen and pelvis were obtained without contrast. Sagittal and coronal reformatted images were provided. Small bilateral pleural effusions are present greater on the right. Pacemaker leads are present within the right atrial appendage and right ventricle. Marked calcific involvement of the left mitral annulus is present. Marked coronary arterial calcification is noted. Diffuse interstitial thickening of the lung iglesias is present. Patchy infiltrate is present involving the superior aspect of the right lower lobe but it is not fully included for purposes of this exam. It is best seen on images 1 through 3 of series 2 and coronal images 31 through 36 of series 4. Mosaic attenuation in the lower lung iglesias is evident. This may represent small airways disease. Interstitial thickening which may represent of nonspecific mild fibrosis noted. Calcified granulomas involving the liver. Calcified granulomas involving the spleen. Pancreas and adrenal glands are unremarkable. Marked right renal atrophy is present. Left kidney is unremarkable. There are at least 2 calculi present within the gallbladder measuring up to 0.55 cm diameter. Gallbladder is mildly distended measuring up to nearly 10 cm in greatest dimension. No biliary dilatation. Significant calcific involvement of the aorta and iliac arteries and its abdominal branches is noted. Marked calcific involvement especially on the right common femoral artery is present with severe luminal narrowing or possibly occlusion evident on axial image 72 of series 2 and coronal images 13-14 of series 4. No definite inflammatory changes about the cecum identified. No bowel obstruction. No distention of bowel. Small fluid levels are seen within colon. No colonic wall thickening. No definite inflammatory change about the bowel. Low-attenuation myometrium which may represent fibroid involvement is present. Facet joint degenerative changes are present from L4 to S1. Anterolisthesis of L5 in relation to S1. One stent is present. Slight anterolisthesis of L4-L5 of less than grade 1 extent is present. Impression: Right lower lobe superior segment infiltrate. Follow-up 2 view chest x-ray exam recommended. Follow-up to resolution recommended. Small bilateral pleural effusions. Cholelithiasis. Gallbladder is distended but no inflammatory changes or biliary dilatation. Marked right renal atrophy. No definite findings of acute inflammation involving the bowel. No obstruction. Marked calcific involvement of the coronary arteries. Correlate clinically. Severe calcific involvement of the aorta and its branches. Significant calcific involvement of the iliac arteries and especially the right common femoral artery. Correlate for possibility of peripheral vascular disease especially of the right lower extremity. PQRS Compliance Statement: One or more of the following individualized dose reduction techniques were utilized for this examination: 1. Automated exposure control 2. Adjustment of the mA and/or kV according to patient size 3. Use of iterative reconstruction technique Electronically signed by: Rah Rogers MD (11/26/2019 9:55 AM) [id number]
[2019-11-26 10:00] LABS: CALCIUM 8.4 mg/dL (8.5-10.1); CREATININE 2.1 mg/dL (0.6-1.0); GFR 22.3; POTASSIUM 3.9 mmol/L (3.5-5.1)
--- NOTE | 2019-11-26 12:05 | NUR ---
SW following. Discussed with RN, pt from [facility], room air. Pt had CT scan this morning. RN ordering PT/OT. SW will continue to follow for any discharge planning needs.
--- NOTE | 2019-11-26 13:48 | RAD ---
CT CHEST WO CONTRAST Indication: Pneumonia Technique: Noncontrast CT imaging was performed of the chest, multiplanar reconstruction images submitted. One or more of the following individualized dose reduction techniques were utilized for this examination: 1. Automated exposure control 2. Adjustment of the mA and/or kV according to patient size 3. Use of iterative reconstruction technique. Comparison: None Findings: There are small dependent pleural effusions bilaterally, right greater than left. There is extensive coronary calcification. There is mitral annular calcification. There is dual-lead left electronic cardiac device. Thoracic aortic caliber is within normal limits, scattered plaque. There is likely significant stenosis of the proximal left subclavian artery by calcified plaque. There is emphysema. There is variable septal thickening bilaterally, also mild honeycombing. There are patchy areas of infiltrate greatest of the right upper lobe but also seen of the lower lobes bilaterally, minimally of the left upper lobe and right middle lobe. There are also some scattered areas of nonspecific groundglass density bilaterally. There is moderate to severe mid thoracic dextroscoliosis. There is multilevel variable thoracic degenerative disc disease. There is air-fluid level in the esophagus which is somewhat dilated, also probable degree of esophageal wall thickening greatest of the mid to distal esophagus. No significantly enlarged nodes are identified of the chest. There is body wall edema. There is prominent atherosclerotic calcification of the visualized abdominal aorta and branches. IMPRESSION: 1. There are patchy bilateral infiltrates greatest of the right upper lobe. There are also some patchy areas of groundglass density bilaterally as can be seen with edema, sequela of atypical infectious etiology such as COVID not excluded. There is degree of interstitial fibrotic change and septal thickening. There are small pleural effusions bilaterally greater on the right. 2. There is prominent coronary calcification. 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 3. There is air-fluid level in the somewhat dilated esophagus, could predispose to increased risk of aspiration. Critical results were discussed with patient's nurse Anahy at 11/26/2019 1:44 PM. Electronically signed by: Dean Barreto MD (11/26/2019 1:45 PM) [place] [id number]
--- NOTE | 2019-11-26 14:20 | PDOC ---
PULMONARY PROGRESS NOTES Vitals Vital Signs Date Time Temp Pulse Resp B/P (MAP) Pulse Ox O2 Delivery O2 Flow Rate FiO2 11/26/19 11:00 98.1 99 17 96/40 (58) 92 Room Air 98.1 Labs Laboratory Tests Test 11/25/19 11:00 11/25/19 12:50 11/25/19 13:45 11/26/19 08:25 White Blood Count 8.6 x10^3/uL (4.0-11.0) 12.6 x10^3/uL (4.0-11.0) Red Blood Count 2.98 x10^6/uL (3.50-5.40) 2.72 x10^6/uL (3.50-5.40) Hemoglobin 9.8 g/dL (12.0-15.5) 8.9 g/dL (12.0-15.5) Hematocrit 29.5 % (36.0-47.0) 27.5 % (36.0-47.0) Mean Corpuscular Volume 99 fL (79-100) 101 fL (79-100) Mean Corpuscular Hemoglobin 33 pg (25-35) 33 pg (25-35) Mean Corpuscular Hemoglobin Concent 33 g/dL (31-37) 32 g/dL (31-37) Red Cell Distribution Width 19.3 % (11.5-14.5) 19.2 % (11.5-14.5) Platelet Count 202 x10^3/uL (140-400) 212 x10^3/uL (140-400) Neutrophils (%) (Auto) 77 % (31-73) 80 % (31-73) Lymphocytes (%) (Auto) 9 % (24-48) 8 % (24-48) Monocytes (%) (Auto) 13 % (0-9) 12 % (0-9) Eosinophils (%) (Auto) 1 % (0-3) 0 % (0-3) Basophils (%) (Auto) 0 % (0-3) 0 % (0-3) Neutrophils # (Auto) 6.6 x10^3/uL (1.8-7.7) 10.1 x10^3/uL (1.8-7.7) Lymphocytes # (Auto) 0.8 x10^3/uL (1.0-4.8) 1.0 x10^3/uL (1.0-4.8) Monocytes # (Auto) 1.1 x10^3/uL (0.0-1.1) 1.5 x10^3/uL (0.0-1.1) Eosinophils # (Auto) 0.1 x10^3/uL (0.0-0.7) 0.0 x10^3/uL (0.0-0.7) Basophils # (Auto) 0.0 x10^3/uL (0.0-0.2) 0.0 x10^3/uL (0.0-0.2) Sodium Level 142 mmol/L (136-145) 142 mmol/L (136-145) Potassium Level 3.1 mmol/L (3.5-5.1) 3.9 mmol/L (3.5-5.1) Chloride Level 102 mmol/L (98-107) 107 mmol/L (98-107) Carbon Dioxide Level 24 mmol/L (21-32) 20 mmol/L (21-32) Anion Gap 16 (6-14) 15 (6-14) Blood Urea Nitrogen 27 mg/dL (7-20) 30 mg/dL (7-20) Creatinine 2.1 mg/dL (0.6-1.0) 2.1 mg/dL (0.6-1.0) Estimated GFR (Cockcroft-Gault) 22.3 22.3 BUN/Creatinine Ratio 13 (6-20) Glucose Level 97 mg/dL (70-99) 93 mg/dL (70-99) Calcium Level 9.1 mg/dL (8.5-10.1) 8.4 mg/dL (8.5-10.1) Magnesium Level 1.7 mg/dL (1.8-2.4) Iron Level 39 ug/dL (50-170) Total Iron Binding Capacity 222 ug/dL (250-450) Iron Saturation 18 % (15-34) Total Bilirubin 0.7 mg/dL (0.2-1.0) Aspartate Amino Transf (AST/SGOT) 106 U/L (15-37) Alanine Aminotransferase (ALT/SGPT) 24 U/L (14-59) Alkaline Phosphatase 60 U/L (46-116) Total Protein 7.1 g/dL (6.4-8.2) Albumin 2.9 g/dL (3.4-5.0) Albumin/Globulin Ratio 0.7 (1.0-1.7) Lipase 36 U/L (73-393) Urine Collection Type U cath Urine Color Yellow Urine Clarity Cloudy Urine pH 5.0 (<5.0-8.0) Urine Specific [place] 1.020 (1.000-1.030) Urine Protein 100 mg/dL (NEG-TRACE) Urine Glucose (UA) Negative mg/dL (NEG) Urine Ketones (Stick) Trace mg/dL (NEG) Urine Blood Negative (NEG) Urine Nitrite Negative (NEG) Urine Bilirubin Small (NEG) Urine Urobilinogen Dipstick 0.2 mg/dL (0.2 mg/dL) Urine Leukocyte Esterase Moderate (NEG) Urine RBC 0 /HPF (0-2) Urine WBC 20-40 /HPF (0-4) Urine Squamous Epithelial Cells Mod /LPF Urine Transitional Epithelial Cells Few /LPF Urine Renal Epithelial Cells Few /LPF Urine Amorphous Sediment Present /HPF Urine Bacteria 0 /HPF (0-FEW) Urine Hyaline Casts Many /HPF Urine Mucus Mod /LPF Stool Occult Blood Negative (NEG) Laboratory Tests Test 11/26/19 08:25 White Blood Count 12.6 x10^3/uL (4.0-11.0) Red Blood Count 2.72 x10^6/uL (3.50-5.40) Hemoglobin 8.9 g/dL (12.0-15.5) Hematocrit 27.5 % (36.0-47.0) Mean Corpuscular Volume 101 fL (79-100) Mean Corpuscular Hemoglobin 33 pg (25-35) Mean Corpuscular Hemoglobin Concent 32 g/dL (31-37) Red Cell Distribution Width 19.2 % (11.5-14.5) Platelet Count 212 x10^3/uL (140-400) Neutrophils (%) (Auto) 80 % (31-73) Lymphocytes (%) (Auto) 8 % (24-48) Monocytes (%) (Auto) 12 % (0-9) Eosinophils (%) (Auto) 0 % (0-3) Basophils (%) (Auto) 0 % (0-3) Neutrophils # (Auto) 10.1 x10^3/uL (1.8-7.7) Lymphocytes # (Auto) 1.0 x10^3/uL (1.0-4.8) Monocytes # (Auto) 1.5 x10^3/uL (0.0-1.1) Eosinophils # (Auto) 0.0 x10^3/uL (0.0-0.7) Basophils # (Auto) 0.0 x10^3/uL (0.0-0.2) Sodium Level 142 mmol/L (136-145) Potassium Level 3.9 mmol/L (3.5-5.1) Chloride Level 107 mmol/L (98-107) Carbon Dioxide Level 20 mmol/L (21-32) Anion Gap 15 (6-14) Blood Urea Nitrogen 30 mg/dL (7-20) Creatinine 2.1 mg/dL (0.6-1.0) Estimated GFR (Cockcroft-Gault) 22.3 Glucose Level 93 mg/dL (70-99) Calcium Level 8.4 mg/dL (8.5-10.1) Medications Active Scripts Medications Dose Route/Sig Max Daily Dose Days Date Category Cipro (Ciprofloxacin Hcl) 500 Mg Tablet 1 Tab PO BID 7 11/24/19 Rx Tylenol (Acetaminophen) 325 Mg Tablet 650 Mg PO PRN Q6HRS PRN 02/04/16 Reported Calcium 500 + Vit D 400 Tablet (Calcium Carbonate/Vitamin D3) 1 Each Tablet 1 Each PO 02/04/16 Reported Multi Vitamin Daily (Multivitamin) 1 Each Tablet 1 Each PO 02/04/16 Reported Vitamin D (Cholecalciferol (Vitamin D3)) 2,000 Unit Capsule 1 Cap PO DAILY 02/04/16 Reported Vitamin B-12 (Cyanocobalamin (Vitamin B-12)) 500 Mcg Tab.subl 1,000 Mcg PO QODAY 02/04/16 Reported Folic Acid 0.4 Mg Tablet 0.4 Mg PO DAILY 02/04/16 Reported Aspirin 325 Mg Tablet 1 Tab PO DAILY 02/04/16 Reported Crestor (Rosuvastatin Calcium) 20 Mg Tablet 1 Tab PO QODAY 02/04/16 Reported Furosemide 20 Mg Tablet 1 Tab PO PRN DAILY PRN 02/04/16 Reported Methotrexate (Methotrexate Sodium) 2.5 Mg Tablet 4 Tab PO WEEKLY 02/04/16 Reported Metoprolol Tartrate 25 Mg Tablet 1 Tab PO BID 02/04/16 Reported Impression . Current documentation reviewed CT chest reviewed Discussed with RN will proceed with SARS-CoV-2 testing Full report to be dictated STACY TARIQ MD Nov 26, 2019 14:20
[2019-11-26] MEDS: cefTRIAXone IV Push 1 GM VIAL. IVP SCH (22:25)
[2019-11-27 03:00] VITALS: BP 91/51
[2019-11-27] MEDS: HEPARIN for SUB-Q USE 5,000 UNIT/ML VIAL. SQ SCH ×3 (06:15→22:28)
[2019-11-27 07:15] VITALS: BP 109/63
--- NOTE | 2019-11-27 10:31 | PDOC ---
PULMONARY PROGRESS NOTES Subjective Patient not more short of Vitals Vital Signs Date Time Temp Pulse Resp B/P (MAP) Pulse Ox O2 Delivery O2 Flow Rate FiO2 11/27/19 07:15 97.6 80 16 109/63 (78) 94 Room Air 97.6 ROS: No Nausea, No Chest Pain, No Abdominal Pain, No Increase Cough Lungs: Crackles Cardiovascular: S1, S2 Abdomen: Soft Neuro Exam: Alert Extremities: No Edema Skin: Warm Labs Laboratory Tests Test 11/25/19 11:00 11/25/19 12:50 11/25/19 13:45 11/26/19 08:25 White Blood Count 8.6 x10^3/uL (4.0-11.0) 12.6 x10^3/uL (4.0-11.0) Red Blood Count 2.98 x10^6/uL (3.50-5.40) 2.72 x10^6/uL (3.50-5.40) Hemoglobin 9.8 g/dL (12.0-15.5) 8.9 g/dL (12.0-15.5) Hematocrit 29.5 % (36.0-47.0) 27.5 % (36.0-47.0) Mean Corpuscular Volume 99 fL (79-100) 101 fL (79-100) Mean Corpuscular Hemoglobin 33 pg (25-35) 33 pg (25-35) Mean Corpuscular Hemoglobin Concent 33 g/dL (31-37) 32 g/dL (31-37) Red Cell Distribution Width 19.3 % (11.5-14.5) 19.2 % (11.5-14.5) Platelet Count 202 x10^3/uL (140-400) 212 x10^3/uL (140-400) Neutrophils (%) (Auto) 77 % (31-73) 80 % (31-73) Lymphocytes (%) (Auto) 9 % (24-48) 8 % (24-48) Monocytes (%) (Auto) 13 % (0-9) 12 % (0-9) Eosinophils (%) (Auto) 1 % (0-3) 0 % (0-3) Basophils (%) (Auto) 0 % (0-3) 0 % (0-3) Neutrophils # (Auto) 6.6 x10^3/uL (1.8-7.7) 10.1 x10^3/uL (1.8-7.7) Lymphocytes # (Auto) 0.8 x10^3/uL (1.0-4.8) 1.0 x10^3/uL (1.0-4.8) Monocytes # (Auto) 1.1 x10^3/uL (0.0-1.1) 1.5 x10^3/uL (0.0-1.1) Eosinophils # (Auto) 0.1 x10^3/uL (0.0-0.7) 0.0 x10^3/uL (0.0-0.7) Basophils # (Auto) 0.0 x10^3/uL (0.0-0.2) 0.0 x10^3/uL (0.0-0.2) Sodium Level 142 mmol/L (136-145) 142 mmol/L (136-145) Potassium Level 3.1 mmol/L (3.5-5.1) 3.9 mmol/L (3.5-5.1) Chloride Level 102 mmol/L (98-107) 107 mmol/L (98-107) Carbon Dioxide Level 24 mmol/L (21-32) 20 mmol/L (21-32) Anion Gap 16 (6-14) 15 (6-14) Blood Urea Nitrogen 27 mg/dL (7-20) 30 mg/dL (7-20) Creatinine 2.1 mg/dL (0.6-1.0) 2.1 mg/dL (0.6-1.0) Estimated GFR (Cockcroft-Gault) 22.3 22.3 BUN/Creatinine Ratio 13 (6-20) Glucose Level 97 mg/dL (70-99) 93 mg/dL (70-99) Calcium Level 9.1 mg/dL (8.5-10.1) 8.4 mg/dL (8.5-10.1) Magnesium Level 1.7 mg/dL (1.8-2.4) Iron Level 39 ug/dL (50-170) Total Iron Binding Capacity 222 ug/dL (250-450) Iron Saturation 18 % (15-34) Total Bilirubin 0.7 mg/dL (0.2-1.0) Aspartate Amino Transf (AST/SGOT) 106 U/L (15-37) Alanine Aminotransferase (ALT/SGPT) 24 U/L (14-59) Alkaline Phosphatase 60 U/L (46-116) Total Protein 7.1 g/dL (6.4-8.2) Albumin 2.9 g/dL (3.4-5.0) Albumin/Globulin Ratio 0.7 (1.0-1.7) Lipase 36 U/L (73-393) Urine Collection Type U cath Urine Color Yellow Urine Clarity Cloudy Urine pH 5.0 (<5.0-8.0) Urine Specific [place] 1.020 (1.000-1.030) Urine Protein 100 mg/dL (NEG-TRACE) Urine Glucose (UA) Negative mg/dL (NEG) Urine Ketones (Stick) Trace mg/dL (NEG) Urine Blood Negative (NEG) Urine Nitrite Negative (NEG) Urine Bilirubin Small (NEG) Urine Urobilinogen Dipstick 0.2 mg/dL (0.2 mg/dL) Urine Leukocyte Esterase Moderate (NEG) Urine RBC 0 /HPF (0-2) Urine WBC 20-40 /HPF (0-4) Urine Squamous Epithelial Cells Mod /LPF Urine Transitional Epithelial Cells Few /LPF Urine Renal Epithelial Cells Few /LPF Urine Amorphous Sediment Present /HPF Urine Bacteria 0 /HPF (0-FEW) Urine Hyaline Casts Many /HPF Urine Mucus Mod /LPF Stool Occult Blood Negative (NEG) Medications Active Scripts Medications Dose Route/Sig Max Daily Dose Days Date Category Cipro (Ciprofloxacin Hcl) 500 Mg Tablet 1 Tab PO BID 7 11/24/19 Rx Tylenol (Acetaminophen) 325 Mg Tablet 650 Mg PO PRN Q6HRS PRN 02/04/16 Reported Calcium 500 + Vit D 400 Tablet (Calcium Carbonate/Vitamin D3) 1 Each Tablet 1 Each PO 02/04/16 Reported Multi Vitamin Daily (Multivitamin) 1 Each Tablet 1 Each PO 02/04/16 Reported Vitamin D (Cholecalciferol (Vitamin D3)) 2,000 Unit Capsule 1 Cap PO DAILY 02/04/16 Reported Vitamin B-12 (Cyanocobalamin (Vitamin B-12)) 500 Mcg Tab.subl 1,000 Mcg PO QODAY 02/04/16 Reported Folic Acid 0.4 Mg Tablet 0.4 Mg PO DAILY 02/04/16 Reported Aspirin 325 Mg Tablet 1 Tab PO DAILY 02/04/16 Reported Crestor (Rosuvastatin Calcium) 20 Mg Tablet 1 Tab PO QODAY 02/04/16 Reported Furosemide 20 Mg Tablet 1 Tab PO PRN DAILY PRN 02/04/16 Reported Methotrexate (Methotrexate Sodium) 2.5 Mg Tablet 4 Tab PO WEEKLY 02/04/16 Reported Metoprolol Tartrate 25 Mg Tablet 1 Tab PO BID 02/04/16 Reported Impression . 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 Speech evaluation, may need video dysphasia study Check sed rate LULU Full pulmonary function testing 6-minute walk prior to discharge STACY TARIQ MD Nov 27, 2019 10:31
[2019-11-27] MEDS: CHOLECALCIFEROL (VITAMIN D3) 1,000 UNIT TABLET PO SCH (11:09)
[2019-11-27] MEDS: MULTIVITAMIN with MINERAL TABLET. PO SCH (11:10)
[2019-11-27] MEDS: ASPIRIN 325 MG TABLET PO SCH (11:10)
[2019-11-27] MEDS: METOPROLOL TART IMMED RELEASE 25 MG TABLET. PO SCH ×2 (11:10→19:31)
[2019-11-27] MEDS: FOLIC ACID 1 MG TABLET. PO SCH (11:11)
[2019-11-27 11:15] VITALS: BP 109/61
[2019-11-27 13:42] LABS: CALCIUM 8.4 mg/dL (8.5-10.1); CREATININE 2.3 mg/dL (0.6-1.0); GFR 20.1; POTASSIUM 3.9 mmol/L (3.5-5.1)
[2019-11-27 15:00] VITALS: BP 104/55
--- NOTE | 2019-11-27 16:20 | PDOC ---
[facility] PROGRESS NOTE Chief Complaint Chief Complaint Right lower lobe superior segment infiltrate. Acute Diarrhea-pending C. 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 no fevers. states her symptoms started after she took lasix. has not taken since 11/18. she came to ED last night and was prescribed cipro for a UTI. sent home but continued to have diarrhea so came to ED. decreased PO intake for several days. no vomiting abdominal pain sob or back pain. denies any urinary symptoms. 11/27/2019 No acute events overnight Patient seen and examined bedside today. Patient says her diarrhea has improved. Denies nausea. She is tolerating her diet. 39 MIN pt exam, chart review, > 50% of time spent with exam, chart review, pt care coordination Justicifation of Admission Dx: Justicifation of Admission Dx: Justifications for Admission: Justification of Admission Dx: Yes Sepsis: Infection Vitals/I&O Vitals/I&O: Vital Signs Date Time Temp Pulse Resp B/P (MAP) Pulse Ox O2 Delivery O2 Flow Rate FiO2 11/27/19 11:15 97.7 73 16 109/61 (77) 97 Room Air 97.7 I & O 11/26/19 11/26/19 11/27/19 15:00 23:00 07:00 Intake Total 200 ml 440 ml Output Total 0 ml Balance 0 ml 200 ml 440 ml Physical Exam Physical Exam: Physical Exam Physical Exam GENERAL: No apparent distress. Alert and oriented. HEENT: Head normocephalic, atraumatic. NECK: Supple LUNGS: Clear to auscultation. HEART: RRR, S1, S2 present, 4/6 jacqueline ABDOMEN: Soft, positive bowel sounds. EXTREMITIES: No cyanosis or edema. NEUROLOGIC: Normal speech, normal tone PSYCHIATRIC: Normal affect, normal mood. SKIN: No ulceration. General: Cooperative Extremities: No cyanosis Labs Labs: Laboratory Tests Test 11/27/19 12:10 Sodium Level 138 mmol/L (136-145) Potassium Level 3.9 mmol/L (3.5-5.1) Chloride Level 104 mmol/L (98-107) Carbon Dioxide Level 23 mmol/L (21-32) Anion Gap 11 (6-14) Blood Urea Nitrogen 39 mg/dL (7-20) Creatinine 2.3 mg/dL (0.6-1.0) Estimated GFR (Cockcroft-Gault) 20.1 Glucose Level 104 mg/dL (70-99) Calcium Level 8.4 mg/dL (8.5-10.1) Assessment and Plan Assessmemt and Plan Problems Medical Problems: (1) Dehydration Status: Acute (2) Diarrhea Status: Acute (3) UTI (urinary tract infection) Status: Acute Comment Review of Relevant I have reviewed the following items christa (where applicable) has been applied. Medications: Current Medications Medications (Trade) Dose Ordered Sig/Love Route PRN Reason Start Time Stop Time Status Last Admin Dose Admin Multivitamins (Thera M Plus) 1 tab DAILY PO 11/27/19 10:30 11/27/19 11:10 Justicifation of Admission Dx: Justifications for Admission: Justification of Admission Dx: Yes Sepsis: Infection YAHAIRA WHITE MD Nov 27, 2019 16:20
--- NOTE | 2019-11-27 16:24 | PDOC2 ---
RUPALI ANNA BIT SHARPENER 11/27/19 1624: CARDIAC CONSULT DATE OF CONSULT Date of Consult DATE: 11/27/19 TIME: 12:07 REASON FOR CONSULT Reason for Consult: severe REFERRING PHYSICIAN Referring Physician: Dr. Acuna SOURCE Source: Chart review, Patient HISTORY OF PRESENT ILLNESS HISTORY OF PRESENT ILLNESS This is an 89 yo female who presented secondary to week long history of bowel and bladder incontinence with liquid stools. Has a history of moderate to severe , which prompted this consult. Patient follows with Dr. Morales with [facility]. One of her diuretics were changed recently (furosemide to torsemide) and patient attributes he diarrhea and incontinence to this, although she only took two days worth of torsemide. She denies any dizziness, diaphoresis, palpitations, shortness of breath, chest pain, or nausea/vomiting. Diarrhea has since resolved. PAST MEDICAL HISTORY Past Medical History Cardiovascular: HTN, Hyperlipidemia, CAD, Aortic stenosis, Other (CHB, PAD) Pulmonary: No pertinent hx Heme/Onc: Anemia NOS Musculoskeletal: Osteoarthritis Rheumatologic: Rheumatoid arthritis (?) Renal/: Chronic renal insuff Endocrine: CKD Dermatology: No pertinent hx PAST SURGICAL HISTORY Past Surgical History: Pacemaker FAMILY HISTORY Family History: Other (noncontributory ) SOCIAL HISTORY Social History Smoke: No ALCOHOL: none Drugs: None Lives: Alone CURRENT MEDICATIONS CURRENT MEDICATIONS Current Medications Medications (Trade) Dose Ordered Sig/Love Route PRN Reason Start Time Stop Time Status Last Admin Dose Admin Multivitamins (Thera M Plus) 1 tab DAILY PO 11/27/19 10:30 11/27/19 11:10 ALLERGIES ALLERGIES: Coded Allergies: Sulfa (Sulfonamide Antibiotics) (Verified Allergy, Intermediate, 11/27/19) ROS Review of System 14 point ROS conducted with pertinent positives noted above in hPI PHYSICAL EXAM PHYSICAL EXAM General: Alert, Oriented X3, Cooperative, No acute distress HEENT: Atraumatic, Mucous membr. moist/pink Lungs: Clear to auscultation, Normal air movement Heart: Regular rate, Normal S1, Normal S2, Other (not on tele, 3/6 systolic murmur to PRAVIN border) Abdomen: Soft, No tenderness Extremities: No cyanosis, No edema Skin: No breakdown, No significant lesion Neuro: Normal speech, Sensation intact Psych/Mental Status: Mental status NL, Mood NL MUSCULOSKELETAL: Osteoarthritic changes both hands VITALS/I&O VITALS/I&O: Vital Signs Date Time Temp Pulse Resp B/P (MAP) Pulse Ox O2 Delivery O2 Flow Rate FiO2 11/27/19 11:15 97.7 73 16 109/61 (77) 97 Room Air 97.7 I & O 11/26/19 11/26/19 11/27/19 14:59 22:59 06:59 Intake Total 200 ml 440 ml Output Total 0 ml Balance 0 ml 200 ml 440 ml LABS Lab: Laboratory Tests Test 11/27/19 12:10 Sodium Level 138 mmol/L (136-145) Potassium Level 3.9 mmol/L (3.5-5.1) Chloride Level 104 mmol/L (98-107) Carbon Dioxide Level 23 mmol/L (21-32) Anion Gap 11 (6-14) Blood Urea Nitrogen 39 mg/dL (7-20) H Creatinine 2.3 mg/dL (0.6-1.0) H Estimated GFR (Cockcroft-Gault) 20.1 Glucose Level 104 mg/dL (70-99) H Calcium Level 8.4 mg/dL (8.5-10.1) L Laboratory Tests 11/27/19 12:10 ECHOCARDIOGRAM ECHOCARDIOGRAM <Conclusion> Normal LV systolic function. EF 65% Moderate to severe , Moderate to severe TR and Moderate MR. DATE: 07/28/15 174 Overall LV systolic function is normal. LVEF by visual estimation is ~=60-65% Mild concentric LV hypertrophy Right ventricular systolic function is normal Severe left atrial dilatation Mild right atrial dilatation The overall 2D echo and Doppler findings would be suggestive of moderate calcific aortic valve stenosis Heavily calcified mitral annulus with evidence of minimal mitral stenosis Estimated Peak Systolic PA Pressure 36 mmHg 05/26/19 - 2-D + DOPPLER ECHOCARDIOGRAM HEART CATH HEART CATH 07/20/16: Cardiac cath: LM free of disease, LAD with 50-60% proximal, 50% mid, distal at apex of 60-70%. ( negative FFR from 0.89 --> 0.82). Lcx with patent proximal stent, mid 60%, patent distal stent, Om1 with 60%, OM2 with 60-70% ( unchanged from previous cath), RCA with proximal and mid 50%. ASSESSMENT/PLAN ASSESSMENT/PLAN 1. Incontinence with diarrhea 2. Abnormal CT chest; COVID pending 3. Polyvalvular disease; moderate mitral stenosis, moderate to severe TR and moderate MR. Follows with Dr. Morales of [facility]. 4. Hypertension; controlled 5. Hyperlipidemia; statin 6. CAD; s/p PCI/stents. Most recent cath 2016 without intervention as noted above 7. PAD; clinically stable 8. RYAN on CKD 9. SSS s/p PPM Recommendations IVFs Hold diuretics Resume secondary prevention measures Outpatient f/u of Follow up with Dr. Morales upon discharge. Supportive care AGNES IRAHETA MD 11/27/192057: CARDIAC CONSULT ASSESSMENT/PLAN ASSESSMENT/PLAN Agree with above TOLL OPERATOR note. Case discussed. Continue IVF. F/u with cardiology upon discharge. No acute issues. RUPALI ANNA APRN Nov 27, 2019 16:24 AGNES IRAHETA MD Nov 27, 2019 20:58
[2019-11-27] MEDS ORDERED: IV NORMAL SALINE 500ML BAG 500 ML IV ONE (16:30)
[2019-11-27] MEDS: IV NORMAL SALINE 1000ML BAG 1,000 ML IV SCH (16:32)
--- NOTE | 2019-11-27 17:16 | NUR ---
SW following. Spoke with RN and reviewed chart. [facility] has been ordered. Pt on IV Rocephin and room air. SW to continue following.
[2019-11-27 19:00] VITALS: BP 97/61
[2019-11-27] MEDS: cefTRIAXone IV Push 1 GM VIAL. IVP SCH (20:39)
[2019-11-27] MEDS: ATORVASTATIN CALCIUM 40 MG TABLET. PO SCH (20:39)
--- NOTE | 2019-11-27 21:55 | CONS ---
DATE OF CONSULTATION: 11/27/2019 ATTENDING PHYSICIAN: Dr. Robel Jean. REASON FOR CONSULTATION: The patient seen in pulmonary consultation at the request of Dr. Jean for abnormal chest x-ray. HISTORY OF PRESENT ILLNESS: The patient is an 89-year-old with a history of hypertension, aortic stenosis and osteoarthritis, presented with watery diarrhea, nonbloody for 5 days. No fever. She was not really short of air. She was seen in the Emergency Room, was sent home with [facility] for UTI. She continued to have diarrhea, represented. CT abdomen and pelvis was obtained, which revealed right lower lobe infiltrate. I was asked to see her in consultation. The patient denies any increasing shortness of breath. No fever, chills or night sweats. PAST MEDICAL HISTORY: Remarkable for hyperlipidemia, hypertension, aortic stenosis, osteoarthritis, rheumatoid arthritis. PAST SURGICAL HISTORY: Status post pacemaker. SOCIAL HISTORY: She denies any tobacco use. ALLERGIES: SULFONAMIDES. REVIEW OF SYSTEMS: As indicated in the history of present illness. Otherwise, a 10-point system was reviewed and negative. CURRENT MEDICATIONS: List was reviewed. PHYSICAL EXAMINATION: GENERAL: The patient was in no respiratory distress. VITAL SIGNS: Room air saturation greater than 92%. She is afebrile. HEENT: Eyes: The sclerae were nonicteric. NECK: Jugular venous distention was not elevated. No lymphadenopathy. CHEST: Full expansion. LUNGS: Coarse breath sounds. No wheezes. CARDIOVASCULAR: Regular rate and rhythm with S1, S2. No S3. ABDOMEN: Soft, nontender, nondistended. EXTREMITIES: No clubbing, cyanosis or edema. NEUROLOGIC: The patient was awake, alert, following commands. A detailed neuro exam was not performed. LABORATORY DATA: White count was 12,000; hemoglobin of 8.9, hematocrit of 27. Electrolytes were noted. BUN was elevated. Creatinine was elevated. UA was noted. Albumin was low. IMPRESSION: 1. Abnormal CT abdomen revealing infiltrates in the lower portions of the lungs. 2. Diarrhea. 3. Urinary tract infection. 4. Protein malnutrition present upon admission. 5. Acute renal failure secondary to vasomotor nephropathy. 6. Anemia. 7. Hypokalemia. 8. Hypomagnesemia. PLAN: 1. Recommend CT chest. 2. SARS-CoV-2 analysis. 3. Continue IV fluids. 4. Replace potassium. 5. DVT prophylaxis. I do appreciate the privilege in sharing in the patient's care. STACY TARIQ MD DR: ELIZABETH/israel JOB#: [id number] / [id number]
[2019-11-27 23:00] VITALS: BP 119/74
[2019-11-28 03:10] VITALS: BP 99/60
[2019-11-28] MEDS: IV NORMAL SALINE 1000ML BAG 1,000 ML IV SCH ×2 (05:36→20:00)
[2019-11-28] MEDS: HEPARIN for SUB-Q USE 5,000 UNIT/ML VIAL. SQ SCH ×3 (05:39→22:16)
[2019-11-28 07:55] VITALS: BP 109/63
[2019-11-28] MEDS: MULTIVITAMIN with MINERAL TABLET. PO SCH (08:01)
[2019-11-28] MEDS: CYANOCOBALAMIN (VITAMIN B-12) 1,000 MCG TABLET. PO SCH (08:01)
[2019-11-28] MEDS: ASPIRIN 325 MG TABLET PO SCH (08:01)
[2019-11-28] MEDS: FOLIC ACID 1 MG TABLET. PO SCH (08:02)
[2019-11-28] MEDS: CHOLECALCIFEROL (VITAMIN D3) 1,000 UNIT TABLET PO SCH (08:02)
[2019-11-28] MEDS: METOPROLOL TART IMMED RELEASE 25 MG TABLET. PO SCH ×2 (08:03→21:22)
[2019-11-28] MEDS ORDERED: BARIUM SULFATE 40% (APPLE) 148 GM PWD. PO ONE (10:45)
[2019-11-28 11:29] VITALS: BP 105/63
--- NOTE | 2019-11-28 11:52 | PDOC2 ---
CONSULT Date of Consult Date of Consult DATE: 11/28/19 TIME: 11:41 Reason for Consult Reason for Consult: Renal BUN and Cr elevated Source Source: Chart review, Patient History of Present Illness Reason for Visit: Patient is a 89 CF hx of HTN, who presents with watery diarrhea for 5 days non-bloody. no fevers. states her symptoms started after she took lasix.She has not taken since 11/18. she came to ED last night and was prescribed cipro for a UTI. sent home but continued to have diarrhea so came to ED. decreased PO intake for several days. no vomiting abdominal pain sob or back pain. denies any urinary symptoms. Currently reports no diarrhea now. Good UOP . No CP/SOB. She is not aware of CKD, Rt renal atrophy reported in 2016 imaging. Baseline Cr 1.7-2.1. Pt doesnt see Nephrology as OP. She follows with PCP Dr. Elizabeth peng appt in september and Cardiology Dr. Bee peng November 17 Denies NSAID use Past Medical History Cardiovascular: HTN, Hyperlipidemia, Aortic stenosis, Other Pulmonary: No pertinent hx Heme/Onc: Anemia NOS Musculoskeletal: Osteoarthritis Rheumatologic: Rheumatoid arthritis Renal/: Chronic renal insuff Endocrine: No pertinent hx Past Surgical History Past Surgical History: Pacemaker Family History Family History Non Contributory Family History: Other (noncontributory ) Social History Social History Smoke: No ALCOHOL: none Drugs: None No ALCOHOL: none Drugs: None Lives: Alone Current Problem List Problem List Problems Medical Problems: (1) Dehydration Status: Acute (2) Diarrhea Status: Acute (3) UTI (urinary tract infection) Status: Acute Current Medications Current Medications Current Medications Sodium Chloride 1,000 ml @ 75 mls/hr [id number] IV Last administered on 11/25/19at 22:15; Start 11/25/19 at 11:22; Stop 11/26/19 at 11:21; Status DC Magnesium Sulfate 50 ml @ 25 mls/hr 1X ONCE IV Last administered on 11/25/19at 19:49; Start 11/25/19 at 19:30; Stop 11/25/19 at 21:29; Status DC Potassium Chloride (Klor-Con) 60 meq 1X ONCE PO Last administered on 11/25/19at 19:48; Start 11/25/19 at 19:30; Stop 11/25/19 at 19:31; Status DC Ceftriaxone Sodium (Rocephin) 1 gm Q24H IVP Last administered on 11/27/19at 20:39; Start 11/25/19 at 20:00 Acetaminophen (Tylenol) 650 mg PRN Q6HRS PRN PO PAIN; Start 11/25/19 at 19:30 Aspirin (Bridgett Aspirin) 325 mg DAILY PO Last administered on 11/28/19 08:01; Start 11/26/19 at 09:00 Metoprolol Tartrate (Lopressor) 25 mg BID PO Last administered on 11/28/19at 08:03; Start 11/25/19 at 21:00 Vitamin D (Vitamin D3) 2,000 unit DAILY PO Last administered on 11/28/19 08:02; Start 11/26/19 at 09:00 Cyanocobalamin (Vitamin B-12) 1,000 mcg QODAY PO Last administered on 11/28/19at 08:01; Start 11/26/19 at 09:00 Folic Acid (Folic Acid) 0.5 mg DAILY PO Last administered on 11/28/19at 08:02; Start 11/26/19 at 09:00 Atorvastatin Calcium (Lipitor) 80 mg Q48H PO Last administered on 11/27/19at 20:39; Start 11/25/19 at 21:00 Heparin Sodium (Porcine) (Heparin Sodium) 5,000 unit Q8HRS SQ Last administered on 11/28/19at 05:39; Start 11/25/19 at 22:00 Multivitamins (Thera M Plus) 1 tab DAILY PO Last administered on 11/28/19 08:01; Start 11/27/19 at 10:30 Sodium Chloride 1,000 ml @ 75 mls/hr [id number] IV Last administered on 11/28/19at 05:36; Start 11/27/19 at 17:00 Sodium Chloride 500 ml @ 500 mls/hr 1X ONCE IV Last administered on 11/27/19at 16:31; Start 11/27/19 at 16:30; Stop 11/27/19 at 17:29; Status DC Barium Sulfate (Varibar Thin Liquid Apple) 148 gm 1X ONCE PO ; Start 11/28/19 at 10:45; Stop 11/28/19 at 10:46; Status DC Active Scripts Active Cipro (Ciprofloxacin Hcl) 500 Mg Tablet 1 Tab PO BID 7 Days Reported Tylenol (Acetaminophen) 325 Mg Tablet 650 Mg PO PRN Q6HRS PRN Calcium 500 + Vit D 400 Tablet (Calcium Carbonate/Vitamin D3) 1 Each Tablet 1 E ach PO Multi Vitamin Daily (Multivitamin) 1 Each Tablet 1 Each PO Vitamin D (Cholecalciferol (Vitamin D3)) 2,000 Unit Capsule 1 Cap PO DAILY Vitamin B-12 (Cyanocobalamin (Vitamin B-12)) 500 Mcg Tab.subl 1,000 Mcg PO QODAY Folic Acid 0.4 Mg Tablet 0.4 Mg PO DAILY Aspirin 325 Mg Tablet 1 Tab PO DAILY Crestor (Rosuvastatin Calcium) 20 Mg Tablet 1 Tab PO QODAY Furosemide 20 Mg Tablet 1 Tab PO PRN DAILY PRN Methotrexate (Methotrexate Sodium) 2.5 Mg Tablet 4 Tab PO WEEKLY Metoprolol Tartrate 25 Mg Tablet 1 Tab PO BID Allergies Allergies: Coded Allergies: Sulfa (Sulfonamide Antibiotics) (Verified Allergy, Intermediate, 11/27/19) ROS Review of System As per HPI, rest negative Physical Exam Physical Exam GENERAL: No apparent distress. Alert and oriented. HEENT: Head normocephalic, atraumatic. NECK: Supple LUNGS: Clear to auscultation. HEART: RRR, S1, S2 present, pulses intact ABDOMEN: Soft, positive bowel sounds. EXTREMITIES: No cyanosis or edema. NEUROLOGIC: Normal speech, normal tone PSYCHIATRIC: Normal affect, normal mood. SKIN: No ulceration. 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 - Pt Not aware, follows with PCP Cr in 2016 1.7-2.1 ?RYAN vs CKD Obtain labs from PCP office , Rt renal atrophy on imaging in 2016 UTI - Abx per primary Diarrhea-acute with Poor PO intake Anemia with Hb 9.8 Labs Labs Laboratory Tests Test 11/26/19 14:06 11/27/19 12:10 11/28/19 04:25 Coronavirus (PCR) Not detected (Not Detected) Sodium Level 138 mmol/L (136-145) Potassium Level 3.9 mmol/L (3.5-5.1) Chloride Level 104 mmol/L (98-107) Carbon Dioxide Level 23 mmol/L (21-32) Anion Gap 11 (6-14) Blood Urea Nitrogen 39 mg/dL (7-20) Creatinine 2.3 mg/dL (0.6-1.0) Estimated GFR (Cockcroft-Gault) 20.1 Glucose Level 104 mg/dL (70-99) Calcium Level 8.4 mg/dL (8.5-10.1) C-Reactive Protein, Quantitative 55.8 mg/L (0-3.3) Ferritin 154 ng/mL (8-252) Laboratory Tests Test 11/27/19 12:10 11/28/19 04:25 Sodium Level 138 mmol/L (136-145) Potassium Level 3.9 mmol/L (3.5-5.1) Chloride Level 104 mmol/L (98-107) Carbon Dioxide Level 23 mmol/L (21-32) Anion Gap 11 (6-14) Blood Urea Nitrogen 39 mg/dL (7-20) Creatinine 2.3 mg/dL (0.6-1.0) Estimated GFR (Cockcroft-Gault) 20.1 Glucose Level 104 mg/dL (70-99) Calcium Level 8.4 mg/dL (8.5-10.1) C-Reactive Protein, Quantitative 55.8 mg/L (0-3.3) Ferritin 154 ng/mL (8-252) Review All relevant outside records, renal labs, imaging studies, telemetry/EKG's were reviewed. AMINA SWEENEY MD Nov 28, 2019 11:52
--- NOTE | 2019-11-28 13:55 | PDOC ---
PULMONARY PROGRESS NOTES Subjective Patient not more short of air, denies any productive cough Vitals Vital Signs Date Time Temp Pulse Resp B/P (MAP) Pulse Ox O2 Delivery O2 Flow Rate FiO2 11/28/19 11:29 98.2 78 18 105/63 (77) 99 Room Air 98.2 ROS: No Nausea, No Chest Pain, No Abdominal Pain, No Increase Cough Lungs: Crackles Cardiovascular: S1, S2 Abdomen: Soft Neuro Exam: Alert Extremities: No Edema Skin: Warm Labs Laboratory Tests Test 11/26/19 14:06 11/27/19 12:10 11/28/19 04:25 Coronavirus (PCR) Not detected (Not Detected) Sodium Level 138 mmol/L (136-145) Potassium Level 3.9 mmol/L (3.5-5.1) Chloride Level 104 mmol/L (98-107) Carbon Dioxide Level 23 mmol/L (21-32) Anion Gap 11 (6-14) Blood Urea Nitrogen 39 mg/dL (7-20) Creatinine 2.3 mg/dL (0.6-1.0) Estimated GFR (Cockcroft-Gault) 20.1 Glucose Level 104 mg/dL (70-99) Calcium Level 8.4 mg/dL (8.5-10.1) C-Reactive Protein, Quantitative 55.8 mg/L (0-3.3) Ferritin 154 ng/mL (8-252) Laboratory Tests Test 11/28/19 04:25 Ferritin 154 ng/mL (8-252) Medications Active Scripts Medications Dose Route/Sig Max Daily Dose Days Date Category Cipro (Ciprofloxacin Hcl) 500 Mg Tablet 1 Tab PO BID 7 11/24/19 Rx Tylenol (Acetaminophen) 325 Mg Tablet 650 Mg PO PRN Q6HRS PRN 02/04/16 Reported Calcium 500 + Vit D 400 Tablet (Calcium Carbonate/Vitamin D3) 1 Each Tablet 1 Each PO 02/04/16 Reported Multi Vitamin Daily (Multivitamin) 1 Each Tablet 1 Each PO 02/04/16 Reported Vitamin D (Cholecalciferol (Vitamin D3)) 2,000 Unit Capsule 1 Cap PO DAILY 02/04/16 Reported Vitamin B-12 (Cyanocobalamin (Vitamin B-12)) 500 Mcg Tab.subl 1,000 Mcg PO QODAY 02/04/16 Reported Folic Acid 0.4 Mg Tablet 0.4 Mg PO DAILY 02/04/16 Reported Aspirin 325 Mg Tablet 1 Tab PO DAILY 02/04/16 Reported Crestor (Rosuvastatin Calcium) 20 Mg Tablet 1 Tab PO QODAY 02/04/16 Reported Furosemide 20 Mg Tablet 1 Tab PO PRN DAILY PRN 02/04/16 Reported Methotrexate (Methotrexate Sodium) 2.5 Mg Tablet 4 Tab PO WEEKLY 02/04/16 Reported Metoprolol Tartrate 25 Mg Tablet 1 Tab PO BID 02/04/16 Reported Impression . IMPRESSION: 1. Abnormal CT abdomen revealing infiltrates in the lower portions of the lungs. 2. Diarrhea. 3. Urinary tract infection. 4. Protein malnutrition present upon admission. 5. Acute renal failure secondary to vasomotor nephropathy. 6. Anemia. 7. Hypokalemia. 8. Hypomagnesemia. IMPRESSION: 1. There are patchy bilateral infiltrates greatest of the right upper lobe. There are also some patchy areas of groundglass density bilaterally as can be seen with edema, sequela of atypical infectious etiology such as COVID not excluded. There is degree of interstitial fibrotic change and septal thickening. There are small pleural effusions bilaterally greater on the right. 2. There is prominent coronary calcification. 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 3. There is air-fluid level in the somewhat dilated esophagus, could predispose to increased risk of aspiration. Plan . 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
--- NOTE | 2019-11-28 14:02 | PDOC ---
[employer] PROGRESS NOTE Chief Complaint Chief Complaint Right lower lobe superior segment infiltrate. Acute Diarrhea-pending C. difficile collection 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 CKD STAGE 3-4 Normocytic anemia secondary to possible CKD related Acute electrolyte derangement History of aortic stenosis HTN HLD Peripheral vascular disease PLAN Continue IV fluids we will bolus 500 cc of NS today if c diff negative start rocephin, check urine cultures replace lytes cardiology consult recommend follow-up with cardiology for as an outpatient Pending nephrology consult for elevated creatinine appreciate recs Heparin for Dvt ppx full code covid-19 screen pulm consult History of Present Illness History of Present Illness 89 hx of HTN, HLD, who presents with watery diarrhea for 5 days non-bloody. no fevers. states her symptoms started after she took lasix. has not taken since 11/18. she came to ED last night and was prescribed cipro for a UTI. sent home but continued to have diarrhea so came to ED. decreased PO intake for several days. no vomiting abdominal pain sob or back pain. denies any urinary symptoms. 11/28/2019 No acute events overnight. Patient seen and examined bedside today. Her breathing has been doing well. Not requiring any oxygen requirements at this time. Pulmonary has recommended for her to get a pulmonary function test and a 6-minute walk test. 11/27/2019 No acute events overnight Patient seen and examined bedside today. Patient says her diarrhea has improved. Denies nausea. She is tolerating her diet. 39 MIN pt exam, chart review, > 50% of time spent with exam, chart review, pt care coordination Justicifation of Admission Dx: Justicifation of Admission Dx: Justifications for Admission: Justification of Admission Dx: Yes Sepsis: Infection Vitals/I&O Vitals/I&O: Vital Signs Date Time Temp Pulse Resp B/P (MAP) Pulse Ox O2 Delivery O2 Flow Rate FiO2 11/28/19 11:29 98.2 78 18 105/63 (77) 99 Room Air 98.2 I & O 11/27/19 11/27/19 11/28/19 15:00 23:00 07:00 Intake Total 300 ml Output Total 200 ml Balance 300 ml -200 ml Physical Exam Physical Exam: Physical Exam Physical Exam GENERAL: No apparent distress. Alert and oriented. HEENT: Head normocephalic, atraumatic. NECK: Supple LUNGS: Clear to auscultation. HEART: RRR, S1, S2 present, 4/6 jacqueline ABDOMEN: Soft, positive bowel sounds. EXTREMITIES: No cyanosis or edema. NEUROLOGIC: Normal speech, normal tone PSYCHIATRIC: Normal affect, normal mood. SKIN: No ulceration. General: Cooperative Lungs: Crackles Extremities: No cyanosis Labs Labs: Laboratory Tests Test 11/28/19 04:25 Ferritin 154 ng/mL (8-252) Review of Systems Review of Systems: CONSTITUIONAL: Denies weight loss, fever and chills. HEENT: Denies changes in vision and hearing. RESPIRATORY: Denies SOB and cough. CV: Denies palpitations and CP. GI: Denies abdominal pain, nausea, vomiting and diarrhea. : Denies dysuria and urinary frequency. MSK: Denies myalgia and joint pain. SKIN: Denies rash and pruritus. NEUROLOGICAL: Denies headache and syncope. PSYCHIATRIC: Denies recent changes in mood. Denies anxiety and depression. Assessment and Plan Assessmemt and Plan Problems Medical Problems: (1) Dehydration Status: Acute (2) Diarrhea Status: Acute (3) UTI (urinary tract infection) Status: Acute Comment Review of Relevant I have reviewed the following items christa (where applicable) has been applied. Medications: Current Medications Medications (Trade) Dose Ordered Sig/Love Route PRN Reason Start Time Stop Time Status Last Admin Dose Admin Sodium Chloride 1,000 ml @ 75 mls/hr [id number] IV 11/27/19 17:00 11/28/19 05:36 Sodium Chloride 500 ml @ 500 mls/hr 1X ONCE IV 11/27/19 16:30 11/27/19 17:29 DC 11/27/19 16:31 Justicifation of Admission Dx: Justifications for Admission: Justification of Admission Dx: Yes Sepsis: Infection YAHAIRA WHITE MD Nov 28, 2019 14:02
--- NOTE | 2019-11-28 14:46 | RAD ---
Exam: Video Swallowing Study Date: 11/28/2019 History: Clinical suspicion for aspiration, dysphagia Comparison: None Procedure: Video fluoroscopy of the neck was performed from the lateral projection following ingestion of various consistency barium which was administered by the speech pathologist. Fluoroscopy time: 0.3 minutes Findings/ Impression: There was deep penetration intermittently with thin consistency barium. No definite penetration or aspiration of solid, mixed or puree consistency barium. Please see speech pathology's report for further details of examination. Electronically signed by: Justin Montalvo MD (11/28/2019 2:43 PM) [id number]
[2019-11-28 15:38] VITALS: BP 99/62
--- NOTE | 2019-11-28 17:16 | NUR ---
SW following. Spoke with RN and reviewed chart. OT recommendation is for HH. Spoke with pt who stated she just had HH services and is not interested in HH at discharge but will let SW know if she changes her mind. Pt stated that her son can stop by her apartment this weekend to see who the previous HH provider was. pt on room air. Pt COVID negative. SW to follow as needed.
[2019-11-28 19:00] VITALS: BP 122/73
--- NOTE | 2019-11-28 19:10 | PDOC ---
CARDIOLOGY PROGRESS NOTE SUBJECTIVE: No new events overnight. Doing better. OBJECTIVE: Vital Signs/I&O: Vital Signs Date Time Temp Pulse Resp B/P (MAP) Pulse Ox O2 Delivery O2 Flow Rate FiO2 11/28/19 15:38 98.4 78 18 99/62 (74) 97 Room Air 98.4 I & O 11/27/19 11/27/19 11/28/19 15:00 23:00 07:00 Intake Total 300 ml Output Total 200 ml Balance 300 ml -200 ml Objective: PHYSICAL EXAM General: Alert, Oriented X3, Cooperative, No acute distress HEENT: Atraumatic, Mucous membr. moist/pink Lungs: Clear to auscultation, Normal air movement Heart: Regular rate, Normal S1, Normal S2, Other (not on tele, 3/6 systolic murmur to PRAVIN border) Abdomen: Soft, No tenderness Extremities: No cyanosis, No edema Skin: No breakdown, No significant lesion Neuro: Normal speech, Sensation intact Psych/Mental Status: Mental status NL, Mood NL MUSCULOSKELETAL: Osteoarthritic changes both hands CURRENT MEDICATIONS: Current Medications Medications (Trade) Dose Ordered Sig/Love Route PRN Reason Start Time Stop Time Status Last Admin Dose Admin Barium Sulfate (Varibar Thin Liquid Apple) 148 gm 1X ONCE PO 11/28/19 10:45 11/28/19 10:46 DC 11/28/19 13:25 DIAGNOSTIC TESTING: labs reviewed Labs: Laboratory Tests Test 11/28/19 04:25 Ferritin 154 ng/mL (8-252) ASSESSMENT: 1. Moderate Aortic stenosis. 2. CKD 3. CAD 4. PAD PLAN: 1. Continue current meds. No further CV testing needed inpt. Ok to DC from CV standpoint with close f/u with Dr. Morales at [facility]. Thanks. Justicifation of Admission Dx: Justifications for Admission: Justification of Admission Dx: Yes Sepsis: Infection AGNES IRAHETA MD Nov 28, 2019 19:10
[2019-11-28] MEDS: cefTRIAXone IV Push 1 GM VIAL. IVP SCH (21:22)
[2019-11-28] MEDS: LACTOBACILLUS RHAMNOSUS GG 1 CAPSULE. PO SCH (21:22)
[2019-11-28 23:00] VITALS: BP 107/66
[2019-11-29 03:00] VITALS: BP 101/68
[2019-11-29] MEDS: HEPARIN for SUB-Q USE 5,000 UNIT/ML VIAL. SQ SCH ×3 (06:11→21:26)
[2019-11-29 07:00] VITALS: BP 109/55
[2019-11-29] MEDS: IV NORMAL SALINE 1000ML BAG 1,000 ML IV SCH (07:11)
--- NOTE | 2019-11-29 08:02 | PDOC ---
PULMONARY PROGRESS NOTES Subjective denies sob, cough, no pain Vitals Vital Signs Date Time Temp Pulse Resp B/P (MAP) Pulse Ox O2 Delivery O2 Flow Rate FiO2 11/29/19 07:47 Room Air 11/29/19 07:00 97.5 82 18 109/55 (73) 97 97.5 ROS: No Nausea, No Chest Pain, No Abdominal Pain, No Increase Cough HEENT: Other (nc at perrl) Lungs: Crackles Cardiovascular: S1, S2 Abdomen: Soft Neuro Exam: Alert Extremities: No Edema Skin: Warm Labs Laboratory Tests Test 11/27/19 12:10 11/28/19 04:25 Sodium Level 138 mmol/L (136-145) Potassium Level 3.9 mmol/L (3.5-5.1) Chloride Level 104 mmol/L (98-107) Carbon Dioxide Level 23 mmol/L (21-32) Anion Gap 11 (6-14) Blood Urea Nitrogen 39 mg/dL (7-20) Creatinine 2.3 mg/dL (0.6-1.0) Estimated GFR (Cockcroft-Gault) 20.1 Glucose Level 104 mg/dL (70-99) Calcium Level 8.4 mg/dL (8.5-10.1) C-Reactive Protein, Quantitative 55.8 mg/L (0-3.3) Ferritin 154 ng/mL (8-252) Medications Active Scripts Medications Dose Route/Sig Max Daily Dose Days Date Category Cipro (Ciprofloxacin Hcl) 500 Mg Tablet 1 Tab PO BID 7 11/24/19 Rx Tylenol (Acetaminophen) 325 Mg Tablet 650 Mg PO PRN Q6HRS PRN 02/04/16 Reported Calcium 500 + Vit D 400 Tablet (Calcium Carbonate/Vitamin D3) 1 Each Tablet 1 Each PO 02/04/16 Reported Multi Vitamin Daily (Multivitamin) 1 Each Tablet 1 Each PO 02/04/16 Reported Vitamin D (Cholecalciferol (Vitamin D3)) 2,000 Unit Capsule 1 Cap PO DAILY 02/04/16 Reported Vitamin B-12 (Cyanocobalamin (Vitamin B-12)) 500 Mcg Tab.subl 1,000 Mcg PO QODAY 02/04/16 Reported Folic Acid 0.4 Mg Tablet 0.4 Mg PO DAILY 02/04/16 Reported Aspirin 325 Mg Tablet 1 Tab PO DAILY 02/04/16 Reported Crestor (Rosuvastatin Calcium) 20 Mg Tablet 1 Tab PO QODAY 02/04/16 Reported Furosemide 20 Mg Tablet 1 Tab PO PRN DAILY PRN 02/04/16 Reported Methotrexate (Methotrexate Sodium) 2.5 Mg Tablet 4 Tab PO WEEKLY 02/04/16 Reported Metoprolol Tartrate 25 Mg Tablet 1 Tab PO BID 02/04/16 Reported Impression . IMPRESSION: 1. Abnormal CT abdomen revealing infiltrates in the lower portions of the lungs. 2. Diarrhea. 3. Urinary tract infection. 4. Protein malnutrition present upon admission. 5. Acute renal failure secondary to vasomotor nephropathy. 6. Anemia. 7. Hypokalemia. resolved 8. Hypomagnesemia.resolved IMPRESSION: 1. There are patchy bilateral infiltrates greatest of the right upper lobe. There are also some patchy areas of groundglass density bilaterally as can be seen with edema, sequela of atypical infectious etiology such as COVID not excluded. There is degree of interstitial fibrotic change and septal thickening. There are small pleural effusions bilaterally greater on the right. 2. There is prominent coronary calcification. 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 3. There is air-fluid level in the somewhat dilated esophagus, could predispose to increased risk of aspiration. Plan . 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
[2019-11-29 08:16] LABS: BASO # 0.1 x10^3/uL (0.0-0.2); BASO % 1 % (0-3); EOS # 0.2 x10^3/uL (0.0-0.7); EOS % 3 % (0-3); HEMATOCRIT 28.2 % (36.0-47.0); HEMOGLOBIN 9.4 g/dL (12.0-15.5); LYMPH # 1.2 x10^3/uL (1.0-4.8); LYMPH % 15 % (24-48); MEAN CORPUSCULAR HEMOGLOBIN 33 pg (25-35); MEAN CORPUSCULAR HGB CONC 33 g/dL (31-37); MEAN CORPUSCULAR VOLUME 100 fL (79-100); MONO # 1.3 x10^3/uL (0.0-1.1); MONO % 15 % (0-9); NEUT # 5.6 x10^3/uL (1.8-7.7); NEUT % 67 % (31-73); PLATELET COUNT 267 x10^3/uL (140-400); RED BLOOD COUNT 2.82 x10^6/uL (3.50-5.40); RED CELL DISTRIBUTION WIDTH 19.7 % (11.5-14.5); WHITE BLOOD COUNT 8.3 x10^3/uL (4.0-11.0)
[2019-11-29] MEDS: ASPIRIN 325 MG TABLET PO SCH (08:36)
[2019-11-29] MEDS: LACTOBACILLUS RHAMNOSUS GG 1 CAPSULE. PO SCH ×2 (08:36→20:22)
[2019-11-29] MEDS: FOLIC ACID 1 MG TABLET. PO SCH (08:36)
[2019-11-29] MEDS: METOPROLOL TART IMMED RELEASE 25 MG TABLET. PO SCH ×2 (08:36→20:22)
[2019-11-29] MEDS: MULTIVITAMIN with MINERAL TABLET. PO SCH (08:36)
[2019-11-29] MEDS: CHOLECALCIFEROL (VITAMIN D3) 1,000 UNIT TABLET PO SCH (08:37)
[2019-11-29 08:44] LABS: ALBUMIN 2.3 g/dL (3.4-5.0); CALCIUM 8.3 mg/dL (8.5-10.1); CREATININE 1.7 mg/dL (0.6-1.0); GFR 28.4; MAGNESIUM 2.3 mg/dL (1.8-2.4); PHOSPHORUS 2.3 mg/dL (2.6-4.7); POTASSIUM 3.8 mmol/L (3.5-5.1)
[2019-11-29 08:47] LABS: CALCIUM 8.1 mg/dL (8.5-10.1); CREATININE 1.8 mg/dL (0.6-1.0); GFR 26.6; POTASSIUM 4.1 mmol/L (3.5-5.1)
[2019-11-29 11:00] VITALS: BP 111/54
--- NOTE | 2019-11-29 11:08 | PDOC ---
PROGRESS NOTES Chief Complaint Chief Complaint Right lower lobe superior segment infiltrate. VS PULM FIBROSIS Acute Diarrhea- C. 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 Normocytic anemia secondary to possible CKD related Acute electrolyte derangement History of aortic stenosis NORMOCYTIC ANEMIA HTN HLD Peripheral vascular disease uti PLAN Continue IV fluids we will bolus 500 cc of NS 11/27 FE PANEL if c diff negative start rocephin, check urine cultures replace lytes cardiology consult recommend follow-up with cardiology for as an outpatient Pending nephrology consult for elevated creatinine appreciate recs Heparin for Dvt ppx full code covid-19 screen pulm consult FE PANEL TRANSFERRIN 6-minute walk prior to discharge 11/28 wants to go HOME INFORMED SHE STILL HAS RENAL INJURY, but is getting better D/W RN History of Present Illness History of Present Illness 89 hx of HTN, HLD, who presents with watery diarrhea for 5 days non-bloody. no fevers. states her symptoms started after she took lasix. has not taken since 11/18. she came to ED last night and was prescribed cipro for a UTI. sent home but continued to have diarrhea so came to ED. decreased PO intake for several days. no vomiting abdominal pain sob or back pain. denies any urinary symptoms. 11/28/2019 No acute events overnight. Patient seen and examined bedside today. Her breathing has been doing well. Not requiring any oxygen requirements at this time. Pulmonary has recommended for her to get a pulmonary function test and a 6-minute walk test. 11/27/2019 No acute events overnight Patient seen and examined bedside today. Patient says her diarrhea has improved. Denies nausea. She is tolerating her diet. 39 MIN pt exam, chart review, > 50% of time spent with exam, chart review, pt care coordination Justicifation of Admission Dx: Justicifation of Admission Dx: Justifications for Admission: Justification of Admission Dx: Yes Sepsis: Infection Vitals Vitals Vital Signs Date Time Temp Pulse Resp B/P (MAP) Pulse Ox O2 Delivery O2 Flow Rate FiO2 11/29/19 08:36 82 109/55 11/29/19 07:47 Room Air 11/29/19 07:00 97.5 18 97 97.5 Physical Exam Physical Exam Physical Exam Physical Exam GENERAL: No apparent distress. Alert and oriented. HEENT: Head normocephalic, atraumatic. NECK: Supple LUNGS: Clear to auscultation. HEART: RRR, S1, S2 present, 4/6 jacqueline ABDOMEN: Soft, positive bowel sounds. EXTREMITIES: No cyanosis or edema. NEUROLOGIC: Normal speech, normal tone PSYCHIATRIC: Normal affect, normal mood. SKIN: No ulceration. General: Alert, Oriented X3, Cooperative, No acute distress Heart: Regular rate Lungs: Clear, Crackles Abdomen: Soft, No tenderness, No masses Extremities: No cyanosis, No edema Skin: No rashes, No significant lesion Labs LABS URINE CULTURE Final Final No Growth on 11/26/19 at 0939 Testing Performed by: [address] [address] For Inquires, the Physician may contact the Microbiology department at [phone] Unless otherwise specified, Testing Performed by: [address] [id number] For Inquires, the Physician may contact the Microbiology department at [phone] Laboratory Tests Test 11/29/19 06:40 White Blood Count 8.3 x10^3/uL (4.0-11.0) Red Blood Count 2.82 x10^6/uL (3.50-5.40) Hemoglobin 9.4 g/dL (12.0-15.5) Hematocrit 28.2 % (36.0-47.0) Mean Corpuscular Volume 100 fL (79-100) Mean Corpuscular Hemoglobin 33 pg (25-35) Mean Corpuscular Hemoglobin Concent 33 g/dL (31-37) Red Cell Distribution Width 19.7 % (11.5-14.5) Platelet Count 267 x10^3/uL (140-400) Neutrophils (%) (Auto) 67 % (31-73) Lymphocytes (%) (Auto) 15 % (24-48) Monocytes (%) (Auto) 15 % (0-9) Eosinophils (%) (Auto) 3 % (0-3) Basophils (%) (Auto) 1 % (0-3) Neutrophils # (Auto) 5.6 x10^3/uL (1.8-7.7) Lymphocytes # (Auto) 1.2 x10^3/uL (1.0-4.8) Monocytes # (Auto) 1.3 x10^3/uL (0.0-1.1) Eosinophils # (Auto) 0.2 x10^3/uL (0.0-0.7) Basophils # (Auto) 0.1 x10^3/uL (0.0-0.2) Sodium Level 141 mmol/L (136-145) Potassium Level 4.1 mmol/L (3.5-5.1) Chloride Level 107 mmol/L (98-107) Carbon Dioxide Level 24 mmol/L (21-32) Anion Gap 10 (6-14) Blood Urea Nitrogen 31 mg/dL (7-20) Creatinine 1.8 mg/dL (0.6-1.0) Estimated GFR (Cockcroft-Gault) 26.6 Glucose Level 85 mg/dL (70-99) Calcium Level 8.1 mg/dL (8.5-10.1) Phosphorus Level 2.3 mg/dL (2.6-4.7) Magnesium Level 2.3 mg/dL (1.8-2.4) Albumin 2.3 g/dL (3.4-5.0) Assessment and Plan Assessmemt and Plan Problems Medical Problems: (1) Dehydration Status: Acute (2) Diarrhea Status: Acute (3) UTI (urinary tract infection) Status: Acute Comment Review of Relevant I have reviewed the following items christa (where applicable) has been applied. Labs Laboratory Tests Test 11/27/19 12:10 11/28/19 04:25 11/29/19 06:40 Sodium Level 138 mmol/L (136-145) 141 mmol/L (136-145) Potassium Level 3.9 mmol/L (3.5-5.1) 4.1 mmol/L (3.5-5.1) Chloride Level 104 mmol/L (98-107) 107 mmol/L (98-107) Carbon Dioxide Level 23 mmol/L (21-32) 24 mmol/L (21-32) Anion Gap 11 (6-14) 10 (6-14) Blood Urea Nitrogen 39 mg/dL (7-20) 31 mg/dL (7-20) Creatinine 2.3 mg/dL (0.6-1.0) 1.8 mg/dL (0.6-1.0) Estimated GFR (Cockcroft-Gault) 20.1 26.6 Glucose Level 104 mg/dL (70-99) 85 mg/dL (70-99) Calcium Level 8.4 mg/dL (8.5-10.1) 8.1 mg/dL (8.5-10.1) C-Reactive Protein, Quantitative 55.8 mg/L (0-3.3) Ferritin 154 ng/mL (8-252) White Blood Count 8.3 x10^3/uL (4.0-11.0) Red Blood Count 2.82 x10^6/uL (3.50-5.40) Hemoglobin 9.4 g/dL (12.0-15.5) Hematocrit 28.2 % (36.0-47.0) Mean Corpuscular Volume 100 fL (79-100) Mean Corpuscular Hemoglobin 33 pg (25-35) Mean Corpuscular Hemoglobin Concent 33 g/dL (31-37) Red Cell Distribution Width 19.7 % (11.5-14.5) Platelet Count 267 x10^3/uL (140-400) Neutrophils (%) (Auto) 67 % (31-73) Lymphocytes (%) (Auto) 15 % (24-48) Monocytes (%) (Auto) 15 % (0-9) Eosinophils (%) (Auto) 3 % (0-3) Basophils (%) (Auto) 1 % (0-3) Neutrophils # (Auto) 5.6 x10^3/uL (1.8-7.7) Lymphocytes # (Auto) 1.2 x10^3/uL (1.0-4.8) Monocytes # (Auto) 1.3 x10^3/uL (0.0-1.1) Eosinophils # (Auto) 0.2 x10^3/uL (0.0-0.7) Basophils # (Auto) 0.1 x10^3/uL (0.0-0.2) Phosphorus Level 2.3 mg/dL (2.6-4.7) Magnesium Level 2.3 mg/dL (1.8-2.4) Albumin 2.3 g/dL (3.4-5.0) Laboratory Tests Test 11/29/19 06:40 White Blood Count 8.3 x10^3/uL (4.0-11.0) Red Blood Count 2.82 x10^6/uL (3.50-5.40) Hemoglobin 9.4 g/dL (12.0-15.5) Hematocrit 28.2 % (36.0-47.0) Mean Corpuscular Volume 100 fL (79-100) Mean Corpuscular Hemoglobin 33 pg (25-35) Mean Corpuscular Hemoglobin Concent 33 g/dL (31-37) Red Cell Distribution Width 19.7 % (11.5-14.5) Platelet Count 267 x10^3/uL (140-400) Neutrophils (%) (Auto) 67 % (31-73) Lymphocytes (%) (Auto) 15 % (24-48) Monocytes (%) (Auto) 15 % (0-9) Eosinophils (%) (Auto) 3 % (0-3) Basophils (%) (Auto) 1 % (0-3) Neutrophils # (Auto) 5.6 x10^3/uL (1.8-7.7) Lymphocytes # (Auto) 1.2 x10^3/uL (1.0-4.8) Monocytes # (Auto) 1.3 x10^3/uL (0.0-1.1) Eosinophils # (Auto) 0.2 x10^3/uL (0.0-0.7) Basophils # (Auto) 0.1 x10^3/uL (0.0-0.2) Sodium Level 141 mmol/L (136-145) Potassium Level 4.1 mmol/L (3.5-5.1) Chloride Level 107 mmol/L (98-107) Carbon Dioxide Level 24 mmol/L (21-32) Anion Gap 10 (6-14) Blood Urea Nitrogen 31 mg/dL (7-20) Creatinine 1.8 mg/dL (0.6-1.0) Estimated GFR (Cockcroft-Gault) 26.6 Glucose Level 85 mg/dL (70-99) Calcium Level 8.1 mg/dL (8.5-10.1) Phosphorus Level 2.3 mg/dL (2.6-4.7) Magnesium Level 2.3 mg/dL (1.8-2.4) Albumin 2.3 g/dL (3.4-5.0) Microbiology 11/25/19 Fecal Leukocyte Stain - Final, Complete 11/25/19 Urine Culture - Final, Complete Medications Current Medications Sodium Chloride 1,000 ml @ 75 mls/hr [id number] IV Last administered on 11/25/19at 22:15; Start 11/25/19 at 11:22; Stop 11/26/19 at 11:21; Status DC Magnesium Sulfate 50 ml @ 25 mls/hr 1X ONCE IV Last administered on 11/25/19at 19:49; Start 11/25/19 at 19:30; Stop 11/25/19 at 21:29; Status DC Potassium Chloride (Klor-Con) 60 meq 1X ONCE PO Last administered on 11/25/19at 19:48; Start 11/25/19 at 19:30; Stop 11/25/19 at 19:31; Status DC Ceftriaxone Sodium (Rocephin) 1 gm Q24H IVP Last administered on 11/28/19at 21:22; Start 11/25/19 at 20:00 Acetaminophen (Tylenol) 650 mg PRN Q6HRS PRN PO PAIN; Start 11/25/19 at 19:30 Aspirin (Bridgett Aspirin) 325 mg DAILY PO Last administered on 11/29/19at 08:36; Start 11/26/19 at 09:00 Metoprolol Tartrate (Lopressor) 25 mg BID PO Last administered on 11/29/19at 08:36; Start 11/25/19 at 21:00 Vitamin D (Vitamin D3) 2,000 unit DAILY PO Last administered on 11/29/19 08:37; Start 11/26/19 at 09:00 Cyanocobalamin (Vitamin B-12) 1,000 mcg QODAY PO Last administered on 11/28/19 08:01; Start 11/26/19 at 09:00 Folic Acid (Folic Acid) 0.5 mg DAILY PO Last administered on 11/29/19 08:36; Start 11/26/19 at 09:00 Atorvastatin Calcium (Lipitor) 80 mg Q48H PO Last administered on 11/27/19 20:39; Start 11/25/19 at 21:00 Heparin Sodium (Porcine) (Heparin Sodium) 5,000 unit Q8HRS SQ Last administered on 11/29/19 06:11; Start 11/25/19 at 22:00 Multivitamins (Thera M Plus) 1 tab DAILY PO Last administered on 11/29/19 08:36; Start 11/27/19 at 10:30 Sodium Chloride 1,000 ml @ 75 mls/hr [id number] IV Last administered on 11/28/19at 20:00; Start 11/27/19 at 17:00 Sodium Chloride 500 ml @ 500 mls/hr 1X ONCE IV Last administered on 11/27/19 16:31; Start 11/27/19 at 16:30; Stop 11/27/19 at 17:29; Status DC Barium Sulfate (Varibar Thin Liquid Apple) 148 gm 1X ONCE PO Last administered on 11/28/19at 13:25; Start 11/28/19 at 10:45; Stop 11/28/19 at 10:46; Status DC Lactobacillus Rhamnosus (Culturelle) 1 cap BID PO Last administered on 11/29/19 08:36; Start 11/28/19 at 21:00 Active Scripts Active Cipro (Ciprofloxacin Hcl) 500 Mg Tablet 1 Tab PO BID 7 Days Reported Tylenol (Acetaminophen) 325 Mg Tablet 650 Mg PO PRN Q6HRS PRN Calcium 500 + Vit D 400 Tablet (Calcium Carbonate/Vitamin D3) 1 Each Tablet 1 Each PO Multi Vitamin Daily (Multivitamin) 1 Each Tablet 1 Each PO Vitamin D (Cholecalciferol (Vitamin D3)) 2,000 Unit Capsule 1 Cap PO DAILY Vitamin B-12 (Cyanocobalamin (Vitamin B-12)) 500 Mcg Tab.subl 1,000 Mcg PO QODAY Folic Acid 0.4 Mg Tablet 0.4 Mg PO DAILY Aspirin 325 Mg Tablet 1 Tab PO DAILY Crestor (Rosuvastatin Calcium) 20 Mg Tablet 1 Tab PO QODAY Furosemide 20 Mg Tablet 1 Tab PO PRN DAILY PRN Methotrexate (Methotrexate Sodium) 2.5 Mg Tablet 4 Tab PO WEEKLY Metoprolol Tartrate 25 Mg Tablet 1 Tab PO BID Vitals/I & O Vital Sign - Last 24 Hours 11/28/19 11/28/19 11/28/19 11/28/19 11:29 15:38 19:00 20:10 Temp 98.2 98.4 97.8 98.2 98.4 97.8 Pulse 78 78 98 Resp 18 18 14 B/P (MAP) 105/63 (77) 99/62 (74) 122/73 (89) Pulse Ox 99 97 99 O2 Delivery Room Air Room Air Room Air Room Air 11/28/19 11/28/19 11/29/19 11/29/19 21:22 23:00 03:00 07:00 Temp 97.8 98.2 97.5 97.8 98.2 97.5 Pulse 98 88 82 82 Resp 14 16 18 B/P (MAP) 122/73 107/66 (80) 101/68 (79) 109/55 (73) Pulse Ox 97 95 97 O2 Delivery Room Air Room Air Room Air 11/29/19 11/29/19 07:47 08:36 Pulse 82 B/P (MAP) 109/55 O2 Delivery Room Air Intake and Output 11/28/19 11/28/19 11/29/19 14:59 22:59 06:59 Intake Total 0 ml 350 ml 1270 ml Output Total 200 ml Balance -200 ml 350 ml 1270 ml Nutrition Consultation Dietary Evaluation: Recommendations by RD: Dietary education by RD, Increase Calorie Intake, Protein supplementation Comments: cardiac diet with ensure bid REC mvi q day - red coccyx Expected Outcomes/Goals: to meet >75% est nutr needs Malnutrition Findings: Food and Nutrition Intake (Sev: <50% est energy req 5days Weight Status: Underweight Justicifation of Admission Dx: Justifications for Admission: Justification of Admission Dx: Yes Sepsis: Infection DONNA LASSITER MD Nov 29, 2019 11:08
--- NOTE | 2019-11-29 13:59 | PDOC ---
PROGRESS NOTES Subjective Subjective SEEN IN FOLLOW UP OF ARF/CKD Objective Objective Vital Signs Date Time Temp Pulse Resp B/P (MAP) Pulse Ox O2 Delivery O2 Flow Rate FiO2 11/29/19 11:00 97.6 89 18 111/54 (73) 98 97.6 11/29/19 07:47 Room Air Intake and Output 11/29/19 07:00 Intake Total 1620 ml Output Total 200 ml Balance 1420 ml Intake Oral 570 ml IV Total 525 ml Other 525 ml Output Urine Total 200 ml # Voids 3 # Bowel Movements 2 Physical Exam Abdomen: Normal bowel sounds, Soft, No tenderness, No hepatosplenomegaly, No masses Heart: Regular rate, Normal S1, Normal S2, No murmurs, Gallops Extremities: No clubbing, No cyanosis, No edema, Normal pulses, No tenderness/swelling General: Alert, Oriented X3, Cooperative, No acute distress Lungs: Clear to auscultation, Normal air movement Psych/Mental Status: Mental status NL, Mood NL Diagnosis RENAL FAILURE: Chronic (CKD stage III) Assessment Assessment Problems Medical Problems: (1) Dehydration Status: Acute (2) Diarrhea Status: Acute (3) UTI (urinary tract infection) Status: Acute Plan Plan of Care SHE HAS NO DIARRHEA AND IS TAKING PO. HER RENAL FUNCTION IS IN HER NORMAL RANGE. OK TO D/C. WILL SIGN OFF Comment Review of Relevant I have reviewed the following items christa (where applicable) has been applied. Labs Laboratory Tests Test 11/28/19 04:25 11/29/19 06:40 Ferritin 154 ng/mL (8-252) White Blood Count 8.3 x10^3/uL (4.0-11.0) Red Blood Count 2.82 x10^6/uL (3.50-5.40) Hemoglobin 9.4 g/dL (12.0-15.5) Hematocrit 28.2 % (36.0-47.0) Mean Corpuscular Volume 100 fL (79-100) Mean Corpuscular Hemoglobin 33 pg (25-35) Mean Corpuscular Hemoglobin Concent 33 g/dL (31-37) Red Cell Distribution Width 19.7 % (11.5-14.5) Platelet Count 267 x10^3/uL (140-400) Neutrophils (%) (Auto) 67 % (31-73) Lymphocytes (%) (Auto) 15 % (24-48) Monocytes (%) (Auto) 15 % (0-9) Eosinophils (%) (Auto) 3 % (0-3) Basophils (%) (Auto) 1 % (0-3) Neutrophils # (Auto) 5.6 x10^3/uL (1.8-7.7) Lymphocytes # (Auto) 1.2 x10^3/uL (1.0-4.8) Monocytes # (Auto) 1.3 x10^3/uL (0.0-1.1) Eosinophils # (Auto) 0.2 x10^3/uL (0.0-0.7) Basophils # (Auto) 0.1 x10^3/uL (0.0-0.2) Sodium Level 141 mmol/L (136-145) Potassium Level 4.1 mmol/L (3.5-5.1) Chloride Level 107 mmol/L (98-107) Carbon Dioxide Level 24 mmol/L (21-32) Anion Gap 10 (6-14) Blood Urea Nitrogen 31 mg/dL (7-20) Creatinine 1.8 mg/dL (0.6-1.0) Estimated GFR (Cockcroft-Gault) 26.6 Glucose Level 85 mg/dL (70-99) Calcium Level 8.1 mg/dL (8.5-10.1) Phosphorus Level 2.3 mg/dL (2.6-4.7) Magnesium Level 2.3 mg/dL (1.8-2.4) Iron Level 28 ug/dL (50-170) Total Iron Binding Capacity 182 ug/dL (250-450) Iron Saturation 15 % (15-34) Albumin 2.3 g/dL (3.4-5.0) Laboratory Tests Test 11/29/19 06:40 White Blood Count 8.3 x10^3/uL (4.0-11.0) Red Blood Count 2.82 x10^6/uL (3.50-5.40) Hemoglobin 9.4 g/dL (12.0-15.5) Hematocrit 28.2 % (36.0-47.0) Mean Corpuscular Volume 100 fL (79-100) Mean Corpuscular Hemoglobin 33 pg (25-35) Mean Corpuscular Hemoglobin Concent 33 g/dL (31-37) Red Cell Distribution Width 19.7 % (11.5-14.5) Platelet Count 267 x10^3/uL (140-400) Neutrophils (%) (Auto) 67 % (31-73) Lymphocytes (%) (Auto) 15 % (24-48) Monocytes (%) (Auto) 15 % (0-9) Eosinophils (%) (Auto) 3 % (0-3) Basophils (%) (Auto) 1 % (0-3) Neutrophils # (Auto) 5.6 x10^3/uL (1.8-7.7) Lymphocytes # (Auto) 1.2 x10^3/uL (1.0-4.8) Monocytes # (Auto) 1.3 x10^3/uL (0.0-1.1) Eosinophils # (Auto) 0.2 x10^3/uL (0.0-0.7) Basophils # (Auto) 0.1 x10^3/uL (0.0-0.2) Sodium Level 141 mmol/L (136-145) Potassium Level 4.1 mmol/L (3.5-5.1) Chloride Level 107 mmol/L (98-107) Carbon Dioxide Level 24 mmol/L (21-32) Anion Gap 10 (6-14) Blood Urea Nitrogen 31 mg/dL (7-20) Creatinine 1.8 mg/dL (0.6-1.0) Estimated GFR (Cockcroft-Gault) 26.6 Glucose Level 85 mg/dL (70-99) Calcium Level 8.1 mg/dL (8.5-10.1) Phosphorus Level 2.3 mg/dL (2.6-4.7) Magnesium Level 2.3 mg/dL (1.8-2.4) Iron Level 28 ug/dL (50-170) Total Iron Binding Capacity 182 ug/dL (250-450) Iron Saturation 15 % (15-34) Albumin 2.3 g/dL (3.4-5.0) Microbiology 11/25/19 Fecal Leukocyte Stain - Final, Complete 11/25/19 Urine Culture - Final, Complete Medications Current Medications Sodium Chloride 1,000 ml @ 75 mls/hr [id number] IV Last administered on 11/25/19at 22:15; Start 11/25/19 at 11:22; Stop 11/26/19 at 11:21; Status DC Magnesium Sulfate 50 ml @ 25 mls/hr 1X ONCE IV Last administered on 11/25/19 19:49; Start 11/25/19 at 19:30; Stop 11/25/19 at 21:29; Status DC Potassium Chloride (Klor-Con) 60 meq 1X ONCE PO Last administered on 11/25/19at 19:48; Start 11/25/19 at 19:30; Stop 11/25/19 at 19:31; Status DC Ceftriaxone Sodium (Rocephin) 1 gm Q24H IVP Last administered on 11/28/19 21:22; Start 11/25/19 at 20:00 Acetaminophen (Tylenol) 650 mg PRN Q6HRS PRN PO PAIN; Start 11/25/19 at 19:30 Aspirin (Bridgett Aspirin) 325 mg DAILY PO Last administered on 11/29/19 08:36; Start 11/26/19 at 09:00 Metoprolol Tartrate (Lopressor) 25 mg BID PO Last administered on 11/29/19 08:36; Start 11/25/19 at 21:00 Vitamin D (Vitamin D3) 2,000 unit DAILY PO Last administered on 11/29/19 08:37; Start 11/26/19 at 09:00 Cyanocobalamin (Vitamin B-12) 1,000 mcg QODAY PO Last administered on 11/28/19 08:01; Start 11/26/19 at 09:00 Folic Acid (Folic Acid) 0.5 mg DAILY PO Last administered on 11/29/19 08:36; Start 11/26/19 at 09:00 Atorvastatin Calcium (Lipitor) 80 mg Q48H PO Last administered on 11/27/19at 20:39; Start 11/25/19 at 21:00 Heparin Sodium (Porcine) (Heparin Sodium) 5,000 unit Q8HRS SQ Last administered on 11/29/19 06:11; Start 11/25/19 at 22:00 Multivitamins (Thera M Plus) 1 tab DAILY PO Last administered on 11/29/19 08:36; Start 11/27/19 at 10:30 Sodium Chloride 1,000 ml @ 75 mls/hr [id number] IV Last administered on 11/28/19at 20:00; Start 11/27/19 at 17:00 Sodium Chloride 500 ml @ 500 mls/hr 1X ONCE IV Last administered on 11/27/19at 16:31; Start 11/27/19 at 16:30; Stop 11/27/19 at 17:29; Status DC Barium Sulfate (Varibar Thin Liquid Apple) 148 gm 1X ONCE PO Last administered on 11/28/19at 13:25; Start 11/28/19 at 10:45; Stop 11/28/19 at 10:46; Status DC Lactobacillus Rhamnosus (Culturelle) 1 cap BID PO Last administered on 11/29/19at 08:36; Start 11/28/19 at 21:00 Active Scripts Active Cipro (Ciprofloxacin Hcl) 500 Mg Tablet 1 Tab PO BID 7 Days Reported Tylenol (Acetaminophen) 325 Mg Tablet 650 Mg PO PRN Q6HRS PRN Calcium 500 + Vit D 400 Tablet (Calcium Carbonate/Vitamin D3) 1 Each Tablet 1 Each PO Multi Vitamin Daily (Multivitamin) 1 Each Tablet 1 Each PO Vitamin D (Cholecalciferol (Vitamin D3)) 2,000 Unit Capsule 1 Cap PO DAILY Vitamin B-12 (Cyanocobalamin (Vitamin B-12)) 500 Mcg Tab.subl 1,000 Mcg PO QODAY Folic Acid 0.4 Mg Tablet 0.4 Mg PO DAILY Aspirin 325 Mg Tablet 1 Tab PO DAILY Crestor (Rosuvastatin Calcium) 20 Mg Tablet 1 Tab PO QODAY Furosemide 20 Mg Tablet 1 Tab PO PRN DAILY PRN Methotrexate (Methotrexate Sodium) 2.5 Mg Tablet 4 Tab PO WEEKLY Metoprolol Tartrate 25 Mg Tablet 1 Tab PO BID Vitals/I & O Vital Sign - Last 24 Hours 11/28/19 11/28/19 11/28/19 11/28/19 15:38 19:00 20:10 21:22 Temp 98.4 97.8 98.4 97.8 Pulse 78 98 98 Resp 18 14 B/P (MAP) 99/62 (74) 122/73 (89) 122/73 Pulse Ox 97 99 O2 Delivery Room Air Room Air Room Air 11/28/19 11/29/19 11/29/19 11/29/19 23:00 03:00 07:00 07:47 Temp 97.8 98.2 97.5 97.8 98.2 97.5 Pulse 88 82 82 Resp 14 16 18 B/P (MAP) 107/66 (80) 101/68 (79) 109/55 (73) Pulse Ox 97 95 97 O2 Delivery Room Air Room Air Room Air Room Air 11/29/19 11/29/19 08:36 11:00 Temp 97.6 97.6 Pulse 82 89 Resp 18 B/P (MAP) 109/55 111/54 (73) Pulse Ox 98 Intake and Output 11/28/19 11/28/19 11/29/19 15:00 23:00 07:00 Intake Total 0 ml 350 ml 1270 ml Output Total 200 ml Balance -200 ml 350 ml 1270 ml Justicifation of Admission Dx: Justifications for Admission: Justification of Admission Dx: Yes Sepsis: Infection Nutrition Consultation Dietary Evaluation: Recommendations by RD: Dietary education by RD, Increase Calorie Intake, Protein supplementation Comments: cardiac diet with ensure bid REC mvi q day - red coccyx Expected Outcomes/Goals: to meet >75% est nutr needs Malnutrition Findings: Food and Nutrition Intake (Sev: <50% est energy req 5days Weight Status: Underweight NATHAN NO MD Nov 29, 2019 13:59
[2019-11-29 15:00] VITALS: BP 128/74
--- NOTE | 2019-11-29 17:59 | DISCH ---
DISCHARGE INSTRUCTIONS Condition on Discharge Condition on Discharge: Stable Activity After Discharge Activity Instructions for Disc: Activity as tolerated Exercise Instruction after Dis: Progress as tolerated Diet after Discharge Diet after Discharge: Regular Diet Texture: Regular Liquid Texture: Thin Liquid Swallowing Supervision: None needed Wound Incision Care Wound/Incision Care: No wound care needed Contacting the DRRoldan after DC Call your doctor for: Concerns you may have Follow-Up Follow up with: Follow-up with pulmonary Follow Up With: Follow-up with nephrology Treatment/Equipment after DC Adaptive Equipment Issued: None YAHAIRA WHITE MD Nov 29, 2019 17:59
[2019-11-29] MEDS ORDERED: AMOX250C PO (18:05)
[2019-11-29] MEDS: AMOXICILLIN 250 MG CAPSULE. PO SCH (18:18)
--- NOTE | 2019-11-29 18:34 | NUR ---
Patient refused BLE US, notified Dr. Mcclellan, no new orders.
[2019-11-29 19:00] VITALS: BP 117/74
[2019-11-29] MEDS: ATORVASTATIN CALCIUM 40 MG TABLET. PO SCH (20:22)
[2019-11-29 23:00] VITALS: BP 111/71
[2019-11-30 03:00] VITALS: BP 110/67
[2019-11-30] MEDS: HEPARIN for SUB-Q USE 5,000 UNIT/ML VIAL. SQ SCH ×2 (06:00→09:59)
[2019-11-30 07:59] VITALS: BP 97/50
--- NOTE | 2019-11-30 08:02 | PDOC ---
PULMONARY PROGRESS NOTES Subjective denies sob, cough, no pain Vitals Vital Signs Date Time Temp Pulse Resp B/P (MAP) Pulse Ox O2 Delivery O2 Flow Rate FiO2 11/30/19 07:27 Room Air 11/30/19 03:00 98.3 88 16 110/67 (81) 95 98.3 ROS: No Nausea, No Chest Pain, No Abdominal Pain, No Increase Cough HEENT: Other (nc at perrl) Lungs: Crackles Cardiovascular: S1, S2 Abdomen: Soft Neuro Exam: Alert Extremities: No Edema Skin: Warm Labs Laboratory Tests Test 11/29/19 06:40 White Blood Count 8.3 x10^3/uL (4.0-11.0) Red Blood Count 2.82 x10^6/uL (3.50-5.40) Hemoglobin 9.4 g/dL (12.0-15.5) Hematocrit 28.2 % (36.0-47.0) Mean Corpuscular Volume 100 fL (79-100) Mean Corpuscular Hemoglobin 33 pg (25-35) Mean Corpuscular Hemoglobin Concent 33 g/dL (31-37) Red Cell Distribution Width 19.7 % (11.5-14.5) Platelet Count 267 x10^3/uL (140-400) Neutrophils (%) (Auto) 67 % (31-73) Lymphocytes (%) (Auto) 15 % (24-48) Monocytes (%) (Auto) 15 % (0-9) Eosinophils (%) (Auto) 3 % (0-3) Basophils (%) (Auto) 1 % (0-3) Neutrophils # (Auto) 5.6 x10^3/uL (1.8-7.7) Lymphocytes # (Auto) 1.2 x10^3/uL (1.0-4.8) Monocytes # (Auto) 1.3 x10^3/uL (0.0-1.1) Eosinophils # (Auto) 0.2 x10^3/uL (0.0-0.7) Basophils # (Auto) 0.1 x10^3/uL (0.0-0.2) Sodium Level 141 mmol/L (136-145) Potassium Level 4.1 mmol/L (3.5-5.1) Chloride Level 107 mmol/L (98-107) Carbon Dioxide Level 24 mmol/L (21-32) Anion Gap 10 (6-14) Blood Urea Nitrogen 31 mg/dL (7-20) Creatinine 1.8 mg/dL (0.6-1.0) Estimated GFR (Cockcroft-Gault) 26.6 Glucose Level 85 mg/dL (70-99) Calcium Level 8.1 mg/dL (8.5-10.1) Phosphorus Level 2.3 mg/dL (2.6-4.7) Magnesium Level 2.3 mg/dL (1.8-2.4) Iron Level 28 ug/dL (50-170) Total Iron Binding Capacity 182 ug/dL (250-450) Iron Saturation 15 % (15-34) Transferrin 161 mg/dL (149-313) Albumin 2.3 g/dL (3.4-5.0) Medications Active Scripts Medications Dose Route/Sig Max Daily Dose Days Date Category Cipro (Ciprofloxacin Hcl) 500 Mg Tablet 1 Tab PO BID 7 11/24/19 Rx Tylenol (Acetaminophen) 325 Mg Tablet 650 Mg PO PRN Q6HRS PRN 02/04/16 Reported Calcium 500 + Vit D 400 Tablet (Calcium Carbonate/Vitamin D3) 1 Each Tablet 1 Each PO 02/04/16 Reported Multi Vitamin Daily (Multivitamin) 1 Each Tablet 1 Each PO 02/04/16 Reported Vitamin D (Cholecalciferol (Vitamin D3)) 2,000 Unit Capsule 1 Cap PO DAILY 02/04/16 Reported Vitamin B-12 (Cyanocobalamin (Vitamin B-12)) 500 Mcg Tab.subl 1,000 Mcg PO QODAY 02/04/16 Reported Folic Acid 0.4 Mg Tablet 0.4 Mg PO DAILY 02/04/16 Reported Aspirin 325 Mg Tablet 1 Tab PO DAILY 02/04/16 Reported Crestor (Rosuvastatin Calcium) 20 Mg Tablet 1 Tab PO QODAY 02/04/16 Reported Furosemide 20 Mg Tablet 1 Tab PO PRN DAILY PRN 02/04/16 Reported Methotrexate (Methotrexate Sodium) 2.5 Mg Tablet 4 Tab PO WEEKLY 02/04/16 Reported Metoprolol Tartrate 25 Mg Tablet 1 Tab PO BID 02/04/16 Reported Impression . IMPRESSION: 1. Abnormal CT abdomen revealing infiltrates in the lower portions of the lungs. 2. Diarrhea. 3. Urinary tract infection. 4. Protein malnutrition present upon admission. 5. Acute renal failure secondary to vasomotor nephropathy. 6. Anemia. 7. Hypokalemia. resolved 8. Hypomagnesemia.resolved IMPRESSION: 1. There are patchy bilateral infiltrates greatest of the right upper lobe. There are also some patchy areas of groundglass density bilaterally as can be seen with edema, sequela of atypical infectious etiology such as COVID not excluded. There is degree of interstitial fibrotic change and septal thickening. There are small pleural effusions bilaterally greater on the right. 2. There is prominent coronary calcification. 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 3. There is air-fluid level in the somewhat dilated esophagus, could predispose to increased risk of aspiration. Plan . 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
[2019-11-30 08:37] LABS: CALCIUM 8.1 mg/dL (8.5-10.1); CREATININE 1.7 mg/dL (0.6-1.0); GFR 28.4; POTASSIUM 4.1 mmol/L (3.5-5.1)
[2019-11-30] MEDS: CHOLECALCIFEROL (VITAMIN D3) 1,000 UNIT TABLET PO SCH (08:37)
[2019-11-30] MEDS: METOPROLOL TART IMMED RELEASE 25 MG TABLET. PO SCH (08:38)
[2019-11-30] MEDS: ASPIRIN 325 MG TABLET PO SCH (08:38)
[2019-11-30] MEDS: AMOXICILLIN 250 MG CAPSULE. PO SCH (08:38)
[2019-11-30] MEDS: LACTOBACILLUS RHAMNOSUS GG 1 CAPSULE. PO SCH (08:38)
[2019-11-30] MEDS: FOLIC ACID 1 MG TABLET. PO SCH (08:38)
[2019-11-30] MEDS: CYANOCOBALAMIN (VITAMIN B-12) 1,000 MCG TABLET. PO SCH (08:38)
[2019-11-30] MEDS: MULTIVITAMIN with MINERAL TABLET. PO SCH (08:38)
[2019-11-30 10:27] VITALS: BP 104/64
--- NOTE | 2019-11-30 10:40 | PDOC ---
PROGRESS NOTES Chief Complaint Chief Complaint discharge dx Right lower lobe superior segment infiltrate. VS PULM FIBROSIS Acute Diarrhea- C. 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 PT ANGRY WELL SON, REFUSED TO STAY FOR GI CONSULT AMA, CAN SEE OUT-PT SOON , explained that she may have an esophageal stricture or blockage , wants to go home today no matter what PLAN Continue IV fluids we will bolus 500 cc of NS 11/27 FE PANEL if c diff negative start rocephin, check urine cultures replace lytes cardiology consult recommend follow-up with cardiology for as an outpatient Pending nephrology consult for elevated creatinine appreciate recs Heparin for Dvt ppx full code covid-19 screen pulm consult FE PANEL TRANSFERRIN 6-minute walk prior to discharge gi consult 11/28 GAIT INSTABILITY, NEEDS pt/ot d/w rn 11/28 wants to go HOME INFORMED SHE STILL HAS RENAL INJURY, but is getting better D/W RN 11/29 very weak, unstable gait with activity D/C AMA D/C PLANNING 33 MIN ========= 11/30/19 Test Phase * 6 Minutes SpO2 * 94 % Heart Rate * 102 beats/min Room Air * Yes Dyspnea * 5 Total Distance Walked * 280 feet 6 Minute Walk Comments * resp increased more, walking more sideways and un balanced; gave full support with kleber belt as she hurried to room. History of Present Illness History of Present Illness 89 hx of HTN, HLD, who presents with watery diarrhea for 5 days non-bloody. no fevers. states her symptoms started after she took lasix. has not taken since 11/18. she came to ED last night and was prescribed cipro for a UTI. sent home but continued to have diarrhea so came to ED. decreased PO intake for several days. no vomiting abdominal pain sob or back pain. denies any urinary symptoms. 11/28/2019 No acute events overnight. Patient seen and examined bedside today. Her breathing has been doing well. Not requiring any oxygen requirements at this time. Pulmonary has recommended for her to get a pulmonary function test and a 6-minute walk test. 11/27/2019 No acute events overnight Patient seen and examined bedside today. Patient says her diarrhea has improved. Denies nausea. She is tolerating her diet. 39 MIN pt exam, chart review, > 50% of time spent with exam, chart review, pt care coordination Justicifation of Admission Dx: Justicifation of Admission Dx: Justifications for Admission: Justification of Admission Dx: Yes Sepsis: Infection Vitals Vitals Vital Signs Date Time Temp Pulse Resp B/P (MAP) Pulse Ox O2 Delivery O2 Flow Rate FiO2 11/30/19 10:27 92 16 104/64 (77) 94 Room Air 11/30/19 07:59 98.2 98.2 Physical Exam Physical Exam Physical Exam Physical Exam GENERAL: No apparent distress. Alert and oriented. HEENT: Head normocephalic, atraumatic. NECK: Supple LUNGS: Clear to auscultation. HEART: RRR, S1, S2 present, 4/6 jacqueline ABDOMEN: Soft, positive bowel sounds. EXTREMITIES: No cyanosis or edema. NEUROLOGIC: Normal speech, normal tone PSYCHIATRIC: Normal affect, normal mood. SKIN: No ulceration. General: Alert, Oriented X3, Cooperative, No acute distress Heart: Regular rate, Normal S1, Normal S2, No murmurs, Gallops Lungs: Clear, Crackles Abdomen: Normal bowel sounds, Soft, No tenderness, No hepatosplenomegaly, No masses Extremities: No clubbing, No cyanosis, No edema, Normal pulses, No tenderness/swelling Skin: No rashes, No significant lesion Labs LABS Exam: Video Swallowing Study Date: 11/28/2019 History: Clinical suspicion for aspiration, dysphagia Comparison: None Procedure: Video fluoroscopy of the neck was performed from the lateral projection following ingestion of various consistency barium which was administered by the speech pathologist. Fluoroscopy time: 0.3 minutes Findings/ Impression: There was deep penetration intermittently with thin consistency barium. No definite penetration or aspiration of solid, mixed or puree consistency barium. Please see speech pathology's report for further details of examination. Electronically signed by: Justin Montalvo MD (11/28/2019 2:43 PM) [id number] DICTATED and SIGNED BY: JUSTIN MONTALVO MD DATE: 11/28/[address] CHEST WO CONTRAST Indication: Pneumonia Technique: Noncontrast CT imaging was performed of the chest, multiplanar reconstruction images submitted. One or more of the following individualized dose reduction techniques were utilized for this examination: 1. Automated exposure control 2. Adjustment of the mA and/or kV according to patient size 3. Use of iterative reconstruction technique. Comparison: None Findings: There are small dependent pleural effusions bilaterally, right greater than left. There is extensive coronary calcification. There is mitral annular calcification. There is dual-lead left electronic cardiac device. Thoracic aortic caliber is within normal limits, scattered plaque. There is likely significant stenosis of the proximal left subclavian artery by calcified plaque. There is emphysema. There is variable septal thickening bilaterally, also mild honeycombing. There are patchy areas of infiltrate greatest of the right upper lobe but also seen of the lower lobes bilaterally, minimally of the left upper lobe and right middle lobe. There are also some scattered areas of nonspecific groundglass density bilaterally. There is moderate to severe mid thoracic dextroscoliosis. There is multilevel variable thoracic degenerative disc disease. There is air-fluid level in the esophagus which is somewhat dilated, also probable degree of esophageal wall thickening greatest of the mid to distal esophagus. No significantly enlarged nodes are identified of the chest. There is body wall edema. There is prominent atherosclerotic calcification of the visualized abdominal aorta and branches. IMPRESSION: 1. There are patchy bilateral infiltrates greatest of the right upper lobe. There are also some patchy areas of groundglass density bilaterally as can be seen with edema, sequela of atypical infectious etiology such as COVID not excluded. There is degree of interstitial fibrotic change and septal thickening. There are small pleural effusions bilaterally greater on the right. 2. There is prominent coronary calcification. 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 3. There is air-fluid level in the somewhat dilated esophagus, could predispose to increased risk of aspiration. Critical results were discussed with patient's nurse Anahy at 11/26/2019 1:44 PM. Electronically signed by: Dean Barreto MD (11/26/2019 1:45 PM) [id number] Laboratory Tests Test 11/30/19 07:15 Sodium Level 143 mmol/L (136-145) Potassium Level 4.1 mmol/L (3.5-5.1) Chloride Level 108 mmol/L (98-107) Carbon Dioxide Level 25 mmol/L (21-32) Anion Gap 10 (6-14) Blood Urea Nitrogen 28 mg/dL (7-20) Creatinine 1.7 mg/dL (0.6-1.0) Estimated GFR (Cockcroft-Gault) 28.4 Glucose Level 98 mg/dL (70-99) Calcium Level 8.1 mg/dL (8.5-10.1) Assessment and Plan Assessmemt and Plan Problems Medical Problems: (1) Dehydration Status: Acute (2) Diarrhea Status: Acute (3) UTI (urinary tract infection) Status: Acute Comment Review of Relevant I have reviewed the following items christa (where applicable) has been applied. Labs Laboratory Tests Test 11/29/19 06:40 11/30/19 07:15 White Blood Count 8.3 x10^3/uL (4.0-11.0) Red Blood Count 2.82 x10^6/uL (3.50-5.40) Hemoglobin 9.4 g/dL (12.0-15.5) Hematocrit 28.2 % (36.0-47.0) Mean Corpuscular Volume 100 fL (79-100) Mean Corpuscular Hemoglobin 33 pg (25-35) Mean Corpuscular Hemoglobin Concent 33 g/dL (31-37) Red Cell Distribution Width 19.7 % (11.5-14.5) Platelet Count 267 x10^3/uL (140-400) Neutrophils (%) (Auto) 67 % (31-73) Lymphocytes (%) (Auto) 15 % (24-48) Monocytes (%) (Auto) 15 % (0-9) Eosinophils (%) (Auto) 3 % (0-3) Basophils (%) (Auto) 1 % (0-3) Neutrophils # (Auto) 5.6 x10^3/uL (1.8-7.7) Lymphocytes # (Auto) 1.2 x10^3/uL (1.0-4.8) Monocytes # (Auto) 1.3 x10^3/uL (0.0-1.1) Eosinophils # (Auto) 0.2 x10^3/uL (0.0-0.7) Basophils # (Auto) 0.1 x10^3/uL (0.0-0.2) Sodium Level 141 mmol/L (136-145) 143 mmol/L (136-145) Potassium Level 4.1 mmol/L (3.5-5.1) 4.1 mmol/L (3.5-5.1) Chloride Level 107 mmol/L (98-107) 108 mmol/L (98-107) Carbon Dioxide Level 24 mmol/L (21-32) 25 mmol/L (21-32) Anion Gap 10 (6-14) 10 (6-14) Blood Urea Nitrogen 31 mg/dL (7-20) 28 mg/dL (7-20) Creatinine 1.8 mg/dL (0.6-1.0) 1.7 mg/dL (0.6-1.0) Estimated GFR (Cockcroft-Gault) 26.6 28.4 Glucose Level 85 mg/dL (70-99) 98 mg/dL (70-99) Calcium Level 8.1 mg/dL (8.5-10.1) 8.1 mg/dL (8.5-10.1) Phosphorus Level 2.3 mg/dL (2.6-4.7) Magnesium Level 2.3 mg/dL (1.8-2.4) Iron Level 28 ug/dL (50-170) Total Iron Binding Capacity 182 ug/dL (250-450) Iron Saturation 15 % (15-34) Transferrin 161 mg/dL (149-313) Albumin 2.3 g/dL (3.4-5.0) Laboratory Tests Test 11/30/19 07:15 Sodium Level 143 mmol/L (136-145) Potassium Level 4.1 mmol/L (3.5-5.1) Chloride Level 108 mmol/L (98-107) Carbon Dioxide Level 25 mmol/L (21-32) Anion Gap 10 (6-14) Blood Urea Nitrogen 28 mg/dL (7-20) Creatinine 1.7 mg/dL (0.6-1.0) Estimated GFR (Cockcroft-Gault) 28.4 Glucose Level 98 mg/dL (70-99) Calcium Level 8.1 mg/dL (8.5-10.1) Microbiology 11/25/19 Fecal Leukocyte Stain - Final, Complete 11/25/19 Urine Culture - Final, Complete Medications Current Medications Sodium Chloride 1,000 ml @ 75 mls/hr [id number] IV Last administered on 11/25/19 22:15; Start 11/25/19 at 11:22; Stop 11/26/19 at 11:21; Status DC Magnesium Sulfate 50 ml @ 25 mls/hr 1X ONCE IV Last administered on 11/25/19 19:49; Start 11/25/19 at 19:30; Stop 11/25/19 at 21:29; Status DC Potassium Chloride (Klor-Con) 60 meq 1X ONCE PO Last administered on 11/25/19 19:48; Start 11/25/19 at 19:30; Stop 11/25/19 at 19:31; Status DC Ceftriaxone Sodium (Rocephin) 1 gm Q24H IVP Last administered on 11/28/19 21:22; Start 11/25/19 at 20:00; Stop 11/29/19 at 18:31; Status DC Acetaminophen (Tylenol) 650 mg PRN Q6HRS PRN PO PAIN; Start 11/25/19 at 19:30 Aspirin (Bridgett Aspirin) 325 mg DAILY PO Last administered on 11/30/19 08:38; Start 11/26/19 at 09:00 Metoprolol Tartrate (Lopressor) 25 mg BID PO Last administered on 11/30/19 08:38; Start 11/25/19 at 21:00 Vitamin D (Vitamin D3) 2,000 unit DAILY PO Last administered on 11/30/19at 08:37; Start 11/26/19 at 09:00 Cyanocobalamin (Vitamin B-12) 1,000 mcg QODAY PO Last administered on 11/30/19 08:38; Start 11/26/19 at 09:00 Folic Acid (Folic Acid) 0.5 mg DAILY PO Last administered on 11/30/19 08:38; Start 11/26/19 at 09:00 Atorvastatin Calcium (Lipitor) 80 mg Q48H PO Last administered on 11/29/19 20:22; Start 11/25/19 at 21:00 Heparin Sodium (Porcine) (Heparin Sodium) 5,000 unit Q8HRS SQ Last administered on 11/29/19 06:11; Start 11/25/19 at 22:00 Multivitamins (Thera M Plus) 1 tab DAILY PO Last administered on 7/19/20at 08:38; Start 11/27/19 at 10:30 Sodium Chloride 1,000 ml @ 75 mls/hr [id number] IV Last administered on 11/28/19at 20:00; Start 11/27/19 at 17:00; Stop 11/29/19 at 18:31; Status DC Sodium Chloride 500 ml @ 500 mls/hr 1X ONCE IV Last administered on 11/27/19at 16:31; Start 11/27/19 at 16:30; Stop 11/27/19 at 17:29; Status DC Barium Sulfate (Varibar Thin Liquid Apple) 148 gm 1X ONCE PO Last administered on 11/28/19at 13:25; Start 11/28/19 at 10:45; Stop 11/28/19 at 10:46; Status DC Lactobacillus Rhamnosus (Culturelle) 1 cap BID PO Last administered on 11/30/19at 08:38; Start 11/28/19 at 21:00 Amoxicillin (Amoxil) 500 mg Q12HR PO Last administered on 11/30/19at 08:38; Start 11/29/19 at 18:30 Active Scripts Active Cipro (Ciprofloxacin Hcl) 500 Mg Tablet 1 Tab PO BID 7 Days Reported Tylenol (Acetaminophen) 325 Mg Tablet 650 Mg PO PRN Q6HRS PRN Calcium 500 + Vit D 400 Tablet (Calcium Carbonate/Vitamin D3) 1 Each Tablet 1 Each PO Multi Vitamin Daily (Multivitamin) 1 Each Tablet 1 Each PO Vitamin D (Cholecalciferol (Vitamin D3)) 2,000 Unit Capsule 1 Cap PO DAILY Vitamin B-12 (Cyanocobalamin (Vitamin B-12)) 500 Mcg Tab.subl 1,000 Mcg PO QODAY Folic Acid 0.4 Mg Tablet 0.4 Mg PO DAILY Aspirin 325 Mg Tablet 1 Tab PO DAILY Crestor (Rosuvastatin Calcium) 20 Mg Tablet 1 Tab PO QODAY Furosemide 20 Mg Tablet 1 Tab PO PRN DAILY PRN Methotrexate (Methotrexate Sodium) 2.5 Mg Tablet 4 Tab PO WEEKLY Metoprolol Tartrate 25 Mg Tablet 1 Tab PO BID Vitals/I & O Vital Sign - Last 24 Hours 11/29/19 11/29/19 11/29/19 11/29/19 11:00 15:00 19:00 20:00 Temp 97.6 97.9 98.5 97.6 97.9 98.5 Pulse 89 78 97 Resp 18 18 20 B/P (MAP) 111/54 (73) 128/74 (92) 117/74 (88) Pulse Ox 98 96 95 O2 Delivery Room Air 11/29/19 11/29/19 11/30/19 11/30/19 20:22 23:00 03:00 07:27 Temp 98.0 98.3 98.0 98.3 Pulse 78 96 88 Resp 18 16 B/P (MAP) 128/74 111/71 (84) 110/67 (81) Pulse Ox 96 95 O2 Delivery Room Air 11/30/19 11/30/19 11/30/19 07:59 08:38 10:27 Temp 98.2 98.2 Pulse 64 64 92 Resp 18 16 B/P (MAP) 97/50 (66) 97/50 104/64 (77) Pulse Ox 97 94 O2 Delivery Room Air Room Air Intake and Output 11/29/19 11/29/19 11/30/19 15:00 23:00 07:00 Intake Total 200 ml 350 ml 125 ml Output Total 200 ml Balance 200 ml 350 ml -75 ml Nutrition Consultation Dietary Evaluation: Recommendations by RD: Dietary education by RD, Increase Calorie Intake, Protein supplementation Comments: cardiac diet with ensure bid REC mvi q day - red coccyx Expected Outcomes/Goals: to meet >75% est nutr needs Malnutrition Findings: Food and Nutrition Intake (Sev: <50% est energy req 5days Weight Status: Underweight Justicifation of Admission Dx: Justifications for Admission: Justification of Admission Dx: Yes Sepsis: Infection DONNA LASSITER MD Nov 30, 2019 10:40
[2019-11-30 11:59] VITALS: BP 96/58
--- NOTE | 2019-11-30 14:22 | PDOC3 ---
Discharge Summary Date of Admission: Nov 25, 2019 Date of Discharge: Nov 30, 2019 Follow-Up: 1-2 days Admitting Diagnosis comment: discharge dx Right lower lobe superior segment infiltrate. VS PULM FIBROSIS Acute Diarrhea- C. 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 PT ANGRY WELL SON, REFUSED TO STAY FOR GI CONSULT AMA, CAN SEE OUT-PT SOON , explained that she may have an esophageal stricture or blockage , wants to go home today no matter what PLAN Continue IV fluids we will bolus 500 cc of NS 11/27 FE PANEL if c diff negative start rocephin, check urine cultures replace lytes cardiology consult recommend follow-up with cardiology for as an outpatient Pending nephrology consult for elevated creatinine appreciate recs Heparin for Dvt ppx full code covid-19 screen pulm consult FE PANEL TRANSFERRIN 6-minute walk prior to discharge gi consult 11/28 GAIT INSTABILITY, NEEDS pt/ot d/w rn 11/28 wants to go HOME INFORMED SHE STILL HAS RENAL INJURY, but is getting better D/W RN 11/29 very weak, unstable gait with activity D/C AMA D/C PLANNING 33 MIN ========= 11/30/19 Test Phase * 6 Minutes SpO2 * 94 % Heart Rate * 102 beats/min Room Air * Yes Dyspnea * 5 Total Distance Walked * 280 feet 6 Minute Walk Comments * resp increased more, walking more sideways and un balanced; gave full support with kleber belt as she hurried to room. History of Present Illness History of Present Illness 89 hx of HTN, HLD, who presents with watery diarrhea for 5 days non-bloody. no fevers. states her symptoms started after she took lasix. has not taken since 11/18. she came to ED last night and was prescribed cipro for a UTI. sent home but continued to have diarrhea so came to ED. decreased PO intake for several days. no vomiting abdominal pain sob or back pain. denies any urinary symptoms. 11/28/2019 No acute events overnight. Patient seen and examined bedside today. Her breathing has been doing well. Not requiring any oxygen requirements at this time. Pulmonary has recommended for her to get a pulmonary function test and a 6-minute walk test. 11/27/2019 No acute events overnight Patient seen and examined bedside today. Patient says her diarrhea has improved. Denies nausea. She is tolerating her diet. 39 MIN pt exam, chart review, > 50% of time spent with exam, chart review, pt care coordination Justicifation of Admission Dx: Justicifation of Admission Dx: Justifications for Admission: Justification of Admission Dx: Yes Sepsis: Infection Vitals Vitals Vital Signs Date Time Temp Pulse Resp B/P (MAP) Pulse Ox O2 Delivery O2 Flow Rate FiO2 11/30/19 10:27 92 16 104/64 (77) 94 Room Air 11/30/19 07:59 98.2 98.2 Physical Exam Physical Exam Physical Exam Physical Exam GENERAL: No apparent distress. Alert and oriented. HEENT: Head normocephalic, atraumatic. NECK: Supple LUNGS: Clear to auscultation. HEART: RRR, S1, S2 present, 4/6 jacqueline ABDOMEN: Soft, positive bowel sounds. EXTREMITIES: No cyanosis or edema. NEUROLOGIC: Normal speech, normal tone PSYCHIATRIC: Normal affect, normal mood. SKIN: No ulceration. General: Alert, Oriented X3, Cooperative, No acute distress Heart: Regular rate, Normal S1, Normal S2, No murmurs, Gallops Lungs: Clear, Crackles Abdomen: Normal bowel sounds, Soft, No tenderness, No hepatosplenomegaly, No masses Extremities: No clubbing, No cyanosis, No edema, Normal pulses, No tenderness/swelling Skin: No rashes, No significant lesion Labs LABS Exam: Video Swallowing Study Date: 11/28/2019 History: Clinical suspicion for aspiration, dysphagia Comparison: None Procedure: Video fluoroscopy of the neck was performed from the lateral projection following ingestion of various consistency barium which was administered by the speech pathologist. Fluoroscopy time: 0.3 minutes Findings/ Impression: There was deep penetration intermittently with thin consistency barium. No definite penetration or aspiration of solid, mixed or puree consistency barium. Please see speech pathology's report for further details of examination. Electronically signed by: Justin Otoole MD (11/28/2019 2:43 PM) [id number] DICTATED and SIGNED BY: JUSTIN OTOOLE MD DATE: 11/28/[address] CHEST WO CONTRAST Indication: Pneumonia Technique: Noncontrast CT imaging was performed of the chest, multiplanar reconstruction images submitted. One or more of the following individualized dose reduction techniques were utilized for this examination: 1. Automated exposure control 2. Adjustment of the mA and/or kV according to patient size 3. Use of iterative reconstruction technique. Comparison: None Findings: There are small dependent pleural effusions bilaterally, right greater than left. There is extensive coronary calcification. There is mitral annular calcification. There is dual-lead left electronic cardiac device. Thoracic aortic caliber is within normal limits, scattered plaque. There is likely significant stenosis of the proximal left subclavian artery by calcified plaque. There is emphysema. There is variable septal thickening bilaterally, also mild honeycombing. There are patchy areas of infiltrate greatest of the right upper lobe but also seen of the lower lobes bilaterally, minimally of the left upper lobe and right middle lobe. There are also some scattered areas of nonspecific groundglass density bilaterally. There is moderate to severe mid thoracic dextroscoliosis. There is multilevel variable thoracic degenerative disc disease. There is air-fluid level in the esophagus which is somewhat dilated, also probable degree of esophageal wall thickening greatest of the mid to distal esophagus. No significantly enlarged nodes are identified of the chest. There is body wall edema. There is prominent atherosclerotic calcification of the visualized abdominal aorta and branches. IMPRESSION: 1. There are patchy bilateral infiltrates greatest of the right upper lobe. There are also some patchy areas of groundglass density bilaterally as can be seen with edema, sequela of atypical infectious etiology such as COVID not excluded. There is degree of interstitial fibrotic change and septal thickening. There are small pleural effusions bilaterally greater on the right. 2. There is prominent coronary calcification. 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 3. There is air-fluid level in the somewhat dilated esophagus, could predispose to increased risk of aspiration. Critical results were discussed with patient's nurse Anahy at 11/26/2019 1:44 PM. Electronically signed by: Dean Barreto MD (11/26/2019 1:45 PM) [id number] FINAL DIAGNOSIS Problems Medical Problems: (1) Dehydration Status: Acute (2) Diarrhea Status: Acute (3) UTI (urinary tract infection) Status: Acute Brief Hospital Course Ms. Madera is a 89 old [sex] who presented with [ RYAN, AND PNEUMONITIS ] CONDITION AT DISCHARGE: Improved Discharge Medications Current Medications Sodium Chloride 1,000 ml @ 75 mls/hr [id number] IV Last administered on 11/25/19 22:15; Start 11/25/19 at 11:22; Stop 11/26/19 at 11:21; Status DC Magnesium Sulfate 50 ml @ 25 mls/hr 1X ONCE IV Last administered on 11/25/19at 19:49; Start 11/25/19 at 19:30; Stop 11/25/19 at 21:29; Status DC Potassium Chloride (Klor-Con) 60 meq 1X ONCE PO Last administered on 11/25/19at 19:48; Start 11/25/19 at 19:30; Stop 11/25/19 at 19:31; Status DC Ceftriaxone Sodium (Rocephin) 1 gm Q24H IVP Last administered on 11/28/19 21:22; Start 11/25/19 at 20:00; Stop 11/29/19 at 18:31; Status DC Acetaminophen (Tylenol) 650 mg PRN Q6HRS PRN PO PAIN; Start 11/25/19 at 19:30 Aspirin (Bridgett Aspirin) 325 mg DAILY PO Last administered on 11/30/19at 08:38; Start 11/26/19 at 09:00 Metoprolol Tartrate (Lopressor) 25 mg BID PO Last administered on 11/30/19at 08:38; Start 11/25/19 at 21:00 Vitamin D (Vitamin D3) 2,000 unit DAILY PO Last administered on 11/30/19at 0 8:37; Start 11/26/19 at 09:00 Cyanocobalamin (Vitamin B-12) 1,000 mcg QODAY PO Last administered on 11/30/19at 08:38; Start 11/26/19 at 09:00 Folic Acid (Folic Acid) 0.5 mg DAILY PO Last administered on 11/30/19at 08:38; Start 11/26/19 at 09:00 Atorvastatin Calcium (Lipitor) 80 mg Q48H PO Last administered on 11/29/19at 20:22; Start 11/25/19 at 21:00 Heparin Sodium (Porcine) (Heparin Sodium) 5,000 unit Q8HRS SQ Last administered on 11/29/19at 06:11; Start 11/25/19 at 22:00 Multivitamins (Thera M Plus) 1 tab DAILY PO Last administered on 11/30/19at 08:38; Start 11/27/19 at 10:30 Sodium Chloride 1,000 ml @ 75 mls/hr [id number] IV Last administered on 11/28/19at 20:00; Start 11/27/19 at 17:00; Stop 11/29/19 at 18:31; Status DC Sodium Chloride 500 ml @ 500 mls/hr 1X ONCE IV Last administered on 11/27/19at 16:31; Start 11/27/19 at 16:30; Stop 11/27/19 at 17:29; Status DC Barium Sulfate (Varibar Thin Liquid Apple) 148 gm 1X ONCE PO Last administered on 11/28/19at 13:25; Start 11/28/19 at 10:45; Stop 11/28/19 at 10:46; Status DC Lactobacillus Rhamnosus (Culturelle) 1 cap BID PO Last administered on 11/30/19at 08:38; Start 11/28/19 at 21:00 Amoxicillin (Amoxil) 500 mg Q12HR PO Last administered on 11/30/19at 08:38; Start 11/29/19 at 18:30 Active Scripts Active Cipro (Ciprofloxacin Hcl) 500 Mg Tablet 1 Tab PO BID 7 Days Reported Tylenol (Acetaminophen) 325 Mg Tablet 650 Mg PO PRN Q6HRS PRN Calcium 500 + Vit D 400 Tablet (Calcium Carbonate/Vitamin D3) 1 Each Tablet 1 Each PO Multi Vitamin Daily (Multivitamin) 1 Each Tablet 1 Each PO Vitamin D (Cholecalciferol (Vitamin D3)) 2,000 Unit Capsule 1 Cap PO DAILY Vitamin B-12 (Cyanocobalamin (Vitamin B-12)) 500 Mcg Tab.subl 1,000 Mcg PO QODAY Folic Acid 0.4 Mg Tablet 0.4 Mg PO DAILY Aspirin 325 Mg Tablet 1 Tab PO DAILY Crestor (Rosuvastatin Calcium) 20 Mg Tablet 1 Tab PO QODAY Furosemide 20 Mg Tablet 1 Tab PO PRN DAILY PRN Methotrexate (Methotrexate Sodium) 2.5 Mg Tablet 4 Tab PO WEEKLY Metoprolol Tartrate 25 Mg Tablet 1 Tab PO BID Vital Signs Vital Signs Date Time Temp Pulse Resp B/P (MAP) Pulse Ox O2 Delivery O2 Flow Rate FiO2 11/30/19 11:59 97.8 90 18 96/58 (71) 96 Room Air 97.8 Labs Laboratory Tests Test 11/29/19 06:40 11/30/19 07:15 White Blood Count 8.3 x10^3/uL (4.0-11.0) Red Blood Count 2.82 x10^6/uL (3.50-5.40) Hemoglobin 9.4 g/dL (12.0-15.5) Hematocrit 28.2 % (36.0-47.0) Mean Corpuscular Volume 100 fL (79-100) Mean Corpuscular Hemoglobin 33 pg (25-35) Mean Corpuscular Hemoglobin Concent 33 g/dL (31-37) Red Cell Distribution Width 19.7 % (11.5-14.5) Platelet Count 267 x10^3/uL (140-400) Neutrophils (%) (Auto) 67 % (31-73) Lymphocytes (%) (Auto) 15 % (24-48) Monocytes (%) (Auto) 15 % (0-9) Eosinophils (%) (Auto) 3 % (0-3) Basophils (%) (Auto) 1 % (0-3) Neutrophils # (Auto) 5.6 x10^3/uL (1.8-7.7) Lymphocytes # (Auto) 1.2 x10^3/uL (1.0-4.8) Monocytes # (Auto) 1.3 x10^3/uL (0.0-1.1) Eosinophils # (Auto) 0.2 x10^3/uL (0.0-0.7) Basophils # (Auto) 0.1 x10^3/uL (0.0-0.2) Sodium Level 141 mmol/L (136-145) 143 mmol/L (136-145) Potassium Level 4.1 mmol/L (3.5-5.1) 4.1 mmol/L (3.5-5.1) Chloride Level 107 mmol/L (98-107) 108 mmol/L (98-107) Carbon Dioxide Level 24 mmol/L (21-32) 25 mmol/L (21-32) Anion Gap 10 (6-14) 10 (6-14) Blood Urea Nitrogen 31 mg/dL (7-20) 28 mg/dL (7-20) Creatinine 1.8 mg/dL (0.6-1.0) 1.7 mg/dL (0.6-1.0) Estimated GFR (Cockcroft-Gault) 26.6 28.4 Glucose Level 85 mg/dL (70-99) 98 mg/dL (70-99) Calcium Level 8.1 mg/dL (8.5-10.1) 8.1 mg/dL (8.5-10.1) Phosphorus Level 2.3 mg/dL (2.6-4.7) Magnesium Level 2.3 mg/dL (1.8-2.4) Iron Level 28 ug/dL (50-170) Total Iron Binding Capacity 182 ug/dL (250-450) Iron Saturation 15 % (15-34) Transferrin 161 mg/dL (149-313) Albumin 2.3 g/dL (3.4-5.0) Laboratory Tests Test 11/30/19 07:15 Sodium Level 143 mmol/L (136-145) Potassium Level 4.1 mmol/L (3.5-5.1) Chloride Level 108 mmol/L (98-107) Carbon Dioxide Level 25 mmol/L (21-32) Anion Gap 10 (6-14) Blood Urea Nitrogen 28 mg/dL (7-20) Creatinine 1.7 mg/dL (0.6-1.0) Estimated GFR (Cockcroft-Gault) 28.4 Glucose Level 98 mg/dL (70-99) Calcium Level 8.1 mg/dL (8.5-10.1) Allergies Allergies Coded Allergies Type Severity Reaction Last Updated Verified Sulfa (Sulfonamide Antibiotics) Allergy Intermediate 11/27/19 Yes Disposition/Orders: D/C to Home w/ HH Justicifation of Admission Dx: Justifications for Admission: Justification of Admission Dx: Yes Sepsis: Infection DONNA LASSITER MD Nov 30, 2019 14:22
--- NOTE | 2019-11-30 14:23 | SNU/HH DC ---
DISCHARGE WITH HOME HEALTH DISCHARGE INFORMATION: Final Diagnosis: Problems Medical Problems: (1) Dehydration Status: Acute (2) Diarrhea Status: Acute (3) UTI (urinary tract infection) Status: Acute Condition on Discharge: Guarded CODE STATUS: Code Status: Full HOME HEALTH: Face to Face: I certify this patient is under my care and that I, or a nurse practitioner or physician's billing and accounting staff assistant working with me, had a face to face encounter that meets the physician face to face encounter requirements with this patient on []. Medical Complications: Pneumonia RN For Eval/Treatment: Yes Physical Therapy For: Evalulation/Treatment Occupational Therapy For: Evaluation/Treatment Speech Language Pathology For: Evaluation/Treatment Home Health Aide For: Self-care MEAT PULLER For: Community Resources Pt Meets Homebound Status: Extreme weakness w/ amb. POST DISCHARGE ORDERS: Activity Instructions for Disc: Activity as tolerated DIET AFTER DISCHARGE: SOFT Wound/Incision Care: No wound care needed FOLLOW-UP: Follow up with: Follow-up with pulmonary Follow Up With: Follow-up with nephrology DC TO SNF LABS: SEE dr asuncion gonzalez for GERD/ REFLUX TREATMENT/EQUIPMENT ORDERS: Adaptive Equipment Issued: None CERTIFICATION STATEMENT: Certification Statement: Certification Statement: Based on the above finding, I certify that this patient is confined to the home and needs intermittent halfway care, physical therapy and/or speech therapy, or continues to need occupational therapy.~ This patient is under my care, and I have initiated the establishment of the plan of care.~ This patient will be followed by myself or a community physician who will periodically review the plan of care. Home Meds Active Scripts Ciprofloxacin Hcl (CIPRO) 500 Mg Tablet, 1 TAB PO BID for 7 Days, #14 TAB 0 Refills Prov:NIVIA DELCID I DO 11/24/19 Reported Medications Acetaminophen (TYLENOL) 325 Mg Tablet, 650 MG PO PRN Q6HRS PRN for PAIN 02/04/16 Calcium Carbonate/Vitamin D3 (CALCIUM 500 + VIT D 400 TABLET) 1 Each Tablet, 1 EACH PO 02/04/16 Multivitamin (MULTI VITAMIN DAILY) 1 Each Tablet, 1 EACH PO 02/04/16 Cholecalciferol (Vitamin D3) (VITAMIN D) 2,000 Unit Capsule, 1 CAP PO DAILY, #30 CAP 3 Refills 02/04/16 Cyanocobalamin (Vitamin B-12) (Vitamin B-12) 500 Mcg Tab.subl, 1000 MCG PO QODAY 02/04/16 Folic Acid (FOLIC ACID) 0.4 Mg Tablet, 0.4 MG PO DAILY, TAB 02/04/16 Aspirin (ASPIRIN) 325 Mg Tablet, 1 TAB PO DAILY, #30 TAB 5 Refills 02/04/16 Rosuvastatin Calcium (CRESTOR) 20 Mg Tablet, 1 TAB PO QODAY, #30 TAB 5 Refills 02/04/16 Furosemide (FUROSEMIDE) 20 Mg Tablet, 1 TAB PO PRN DAILY PRN for SEE COMMENTS, #90 TAB 1 Refill 02/04/16 Methotrexate Sodium (METHOTREXATE) 2.5 Mg Tablet, 4 TAB PO WEEKLY, #16 TAB 1 Refill 02/04/16 Metoprolol Tartrate (METOPROLOL TARTRATE) 25 Mg Tablet, 1 TAB PO BID, #180 TAB 1 Refill 02/04/16 DONNA LASSITER MD Nov 30, 2019 14:23
--- NOTE | 2019-11-30 14:40 | NUR ---
Discharge Note: RUTH SHAH J4 GARRISON Discharge instructions and discharge home medications reviewed with Patient and her son and a copy given. All questions have been answered and understanding verbalized. The following instructions and handouts were given: information about follow up appointments, medications, follow up checks, etc. Discontinued lines and drains: no IV line present. Patient discharged to home with self care with son, wheelchair used for mobility to discharge vehicle.
[2019-12-01 18:09] LABS: ANA INTERP Negative (.)
== END 2019-11-30 14:40 | disposition home or self-care (01) | DRG 682 ==
LOC: ER 10:21 → ED HOLD 11:23 → 4 NORTH 14:31 → 6 SOUTH 11-26 16:31 → 4 NORTH 11-28 18:42
PROVIDERS: ADMIT Internal Medicine; ATTEND Internal Medicine
DX: N17.0 Acute kidney failure with tubular necrosis (principal); J18.9 Pneumonia, unspecified organism; N39.0 Urinary tract infection, site not specified; E46 Unspecified protein-calorie malnutrition; K22.2 Esophageal obstruction; E87.6 Hypokalemia; N18.4 Chronic kidney disease, stage 4 (severe); D64.9 Anemia, unspecified; E78.00 Pure hypercholesterolemia, unspecified; R19.7 Diarrhea, unspecified; E78.5 Hyperlipidemia, unspecified; E83.42 Hypomagnesemia; E86.0 Dehydration; I12.9 Hypertensive chronic kidney disease with stage 1 through stage 4 chronic kidney disease, or unspecified chronic kidney disease; D63.1 Anemia in chronic kidney disease; I25.10 Atherosclerotic heart disease of native coronary artery without angina pectoris; I49.5 Sick sinus syndrome; I73.9 Peripheral vascular disease, unspecified; K22.8 Other specified diseases of esophagus; K80.20 Calculus of gallbladder without cholecystitis without obstruction; M06.9 Rheumatoid arthritis, unspecified; M41.9 Scoliosis, unspecified; Z95.0 Presence of cardiac pacemaker; Z95.5 Presence of coronary angioplasty implant and graft; M19.90 Unspecified osteoarthritis, unspecified site; Z90.49 Acquired absence of other specified parts of digestive tract; Z79.899 Other long term (current) drug therapy; Z20.828 Contact with and (suspected) exposure to other viral communicable diseases; Z88.2 Allergy status to sulfonamides
CPT/HCPCS: 36415; 71250; 74176; 74230; 80048; 80053; 80069; 81001; 82274; 82728; 83540; 83550; 83690; 83735; 84466; 85025; 86038; 86140; 87086; 87177; 87205; 87209; 87493; 93005; 94618; 94760; J0696; J1644; J3475; J7030; J7040; 92611-GN; 97110-GP; 97116-GP; 97535-GO; 99285-25; G0378; U0003-CS